=== PATIENT | female | born 1965 | race Caucasian/White ===

== ENCOUNTER → 2022-12-07 13:47 | Outpatient (CLI) | payer BC, SELFPAY ==
--- NOTE | 2022-12-07 13:50 | MM_ITS ---
PROCEDURE INFORMATION: Exam: MG Bilateral Screening 3D Mammography Exam date and time: 12/07/2022 1:42 PM Age: 56 years old Clinical indication: Screening examination TECHNIQUE: Imaging protocol: Bilateral Screening tomosynthesis and 2D mammography including computer-aided detection (CAD) when performed. COMPARISON: 1. MG DMSB DIG MAMM-SCREEN JOSUE W/CAD 09/25/2016 10:41 AM 2. MG DMDXUAVL DIG MAMM-DX UNI ADD VIEWS-LT 05/24/2012 3:22 PM FINDINGS: MAMMOGRAPHY: Breast composition: There are scattered areas of fibroglandular density. Mass: None. Architectural distortion: None. Calcifications: No suspicious calcifications. Asymmetric density: None. Skin thickening: None. Axillary adenopathy: None. IMPRESSION: No mammographic evidence of malignancy. Annual screening is recommended unless otherwise clinically indicated. ASSESSMENT: BI-RADS Category 1: Negative
--- NOTE | 2022-12-07 13:51 | US_ITS ---
FINAL REPORT TECHNIQUE: Limited sonographic images of the thyroid were obtained. CLINICAL HISTORY: GOITER FINDINGS: US THYROID/HEAD OR NECK SOFT TISSUE The right lobe of the thyroid measures 6.3 x 3.2 x 3.5 cm. There is a solid, hypoechoic nodule measuring 11 x 7 x 7 mm consistent with TI-RADS category 4. There is a cystic, solid, isoechoic nodule measuring 6 x 5 x 5 mm consistent with TI-RADS category 2. The left lobe of the thyroid measures 6.5 x 2.6 x 3.3 cm. There is a solid, isoechoic nodule measuring 16 x 9 x 15 mm consistent with TI-RADS category 3. There is a solid, isoechoic nodule measuring 23 x 24 x 11 mm consistent with TI-RADS category 3. The isthmus measures 5 mm. IMPRESSION: Multiple bilateral thyroid nodules as detailed above. Recommend follow-up in 6-12 months. Reviewed, Interpreted and Dictated by Zeyad Lopez III, MD Transcribed by Fifi Yeager Authenticated and [facility]
== END ==
PROVIDERS: PCP Family Medicine; Visit Provider Family Medicine
DX: Z12.31 Encounter for screening mammogram for malignant neoplasm of breast (principal)
CPT/HCPCS: 76536; 77063; 77067

== ENCOUNTER 2023-01-11 11:21 | Day surgery (SDC) | payer BC, SELFPAY ==
[2022-12-28 09:45] VITALS: BMI 30.4
[2023-01-11 11:33] VITALS: BP 149/82; PULSE 50; RESP 18; TEMP 36.4; O2SAT 100
--- NOTE | 2023-01-11 11:46 | EXP.ANES.CKL ---
[facility] Disclaimer: The information contained in this section may have been updated after the patient was seen, as this information can be updated by other users. Medical History Abscess Cataract Hx MRSA infection Hx of thyroid nodule Surgical History History of cholecystectomy Hx of blepharoplasty Hx of cataract surgery Hx of melanoma excision Family History Other Family history of diabetes mellitus type II Family history of myocardial infarction Social History Smoking Status: Current every day smoker tobacco type: cigarettes alcohol intake: never substance use type: denies use current occupational status: employed Travel in the last 8 weeks: None caffeine: No [facility] Anesthesia Checklist Patient Identification Patient Identification: Arm Band and Verbal (Name & ) Structural Data Admitted From: Home Planned Operative Procedure/s: Colonoscopy Consent for Planned Operative Procedure(s) Verified: Yes NPO Status Verified Time NPO: 00:00 Additional verifications Anesthesia Reactions: No Airway Assessment Mallampati Score:: Class III C-Spine Mobility Assessed: Yes TMJ Mobility Assessed: Yes Dentition: Good Dentition Neurological Assessment Level of Consciousness: Awake Hx Seizures: No Numbness or tingling in extremities: No Anesthesia Plan Anesthesia Risk discussed: Yes Anesthesia Plan: Verified ASA Class: III Anesthesia Type: MAC
[2023-01-11 11:49] LABS: POC Glucose,Bedside 132 (70-110)
[2023-01-11 12:25] VITALS: O2SAT 99
--- NOTE | 2023-01-11 12:40 | HMH.SCOPE ---
Procedure: Date: 01/11/23 Patient Date of :: 1965 Procedure Performed:: Screening colonoscopy Indications:: Colon screening, personal history of melenoma Performing Provider:: Roberta Garcia MD Referring Provider:: Hannah Garcia Sedation:: Propofol Procedure:: After placing the patient in the left lateral decubitus position, the colonoscopy was gently inserted into the rectum and under direct visualization advanced to the cecum which was identified by transillumination in the right lower quadrant, identification of the ileocecal valve, appendiceal orifice, and cecal strap. Color, texture, mucosa, and anatomy of the colon were carefully examined with the scope. Findings:: Anal canal: normal Rectum: normal Sigmoid colon: normal without polyps or inflammatory changes Descending colon: normal without polyps or inflammatory changes Splenic flexure: normal Transverse colon: normal without polyps or inflammatory changes Hepatic flexure: normal Ascending colon: normal without polyps or inflammatory changes Cecum: normal Terminal ileum: not visualized Impression: Normal colonoscopy Recommendations:: Follow up examination in about TEN years or so, sooner if clinically indicated. Complications:: None Estimated blood obtained (mL): 0 Colonoscopy Component Colonoscopy Component Was a colonoscopy performed during today's procedure?: Yes Recommended follow up colonoscopy of at least 10 years?: Yes
[2023-01-11 12:44] VITALS: BP 113/66; PULSE 73; RESP 18; TEMP 36.7; O2SAT 95
[2023-01-11 12:51] VITALS: BP 131/71; PULSE 73; RESP 18; O2SAT 97
[2023-01-11 13:01] VITALS: BP 132/70; PULSE 70; RESP 18; O2SAT 95
[2023-01-11 13:11] VITALS: BP 136/76; PULSE 70; RESP 18; O2SAT 96
== END 2023-01-11 13:11 | disposition home or self-care (01) ==
PROVIDERS: PCP Family Medicine; Visit Provider Internal Medicine Gastroenterology
PROC: (CPT 45378; principal; 2023-01-11 12:30)
DX: Z12.11 Encounter for screening for malignant neoplasm of colon (principal); Z85.820 Personal history of malignant melanoma of skin; E11.9 Type 2 diabetes mellitus without complications
CPT/HCPCS: 45378; 82962

== ENCOUNTER 2024-08-02 14:32 | Inpatient (IN) | payer BC, SELFPAY ==
[2024-08-02] VITALS (18 sets, daily range): BP systolic 97–165; BP diastolic 53–95; PULSE 81–96; RESP 12–19; TEMP 36.3–37.3; O2SAT 90–99; BMI 30.4; BMI 30.2
--- NOTE | 2024-08-02 14:44 | CT_ITS ---
PROCEDURE INFORMATION: Exam: CT Abdomen And Pelvis With Contrast Exam date and time: 08/02/2024 4:07 PM Age: 58 years old Clinical indication: Abdominal pain; Additional info: Abd pain TECHNIQUE: Imaging protocol: Computed tomography of the abdomen and pelvis with contrast. Radiation optimization: All CT scans at this facility use at least one of these dose optimization techniques: automated exposure control; mA and/or kV adjustment per patient size (includes targeted exams where dose is matched to clinical indication); or iterative reconstruction. Contrast material: ISOVUE; Contrast volume: 75 ml; Contrast route: IV; COMPARISON: No relevant prior studies available. FINDINGS: Lungs: Lung bases are clear. Liver: Fatty liver changes with associated hepatomegaly measuring 20 cm. Liver otherwise unremarkable. Gallbladder and biliary ducts: Status post cholecystectomy. No evident bile duct dilatation allowing for prior cholecystectomy. Pancreas: Normal. No ductal dilation. Spleen: Normal. No splenomegaly. Adrenal glands: Normal. No mass. Kidneys and ureters: Normal. No hydronephrosis. Stomach and bowel: Mildly fluid distended proximal to mid small bowel loops noted suggesting ileus. GI tract structures otherwise unremarkable with no evident wall thickening allowing for incomplete distention. Appendix: Dilated fluid-filled appendix measuring up to 16 mm with associated wall thickening and [id number] adjacent inflammatory changes compatible with acute appendicitis noted. Associated thickening of the tip of the cecum. Intraperitoneal space: Unremarkable. No free air. No significant fluid collection. Vasculature: Unremarkable. No abdominal aortic aneurysm. Lymph nodes: Unremarkable. No enlarged lymph nodes. Urinary bladder: Unremarkable as visualized. Reproductive: Unremarkable as visualized. Bones/joints: Unremarkable. No acute fracture. Soft tissues: No definite abscess or extraluminal air. IMPRESSION: Acute appendicitis with associated thickening of the cecal tip. Distended small bowel loops noted suggest ileus associated with the appendicitis.
--- OUTSIDE RECORDS SUMMARY | 2024-08-02 14:44 | XMS_ITS | Data Portability ---
Author Organization [facility] Address [address] [place] [address] Care Team Providers Care School Administrator Name Role Phone TODD PAREDES Referring Provider [phone] Assessment No assessment recorded. Plan of Treatment Reminders Order Date Submit Date Provider Last Modified By Organization Details Last Modified Time Details Appointments RECHECK 2024 01:00P M ROMY CLICK CONSUMER SAFETY INSPECTOR Not available Not available Not available Lab TSH, serum or plasma 2023 024 [facility], [address] [place] [address], [phone], 10/12/2023 14:49:59 T3, free, serum or plasma 2023 024 [facility], [address] [place] [address], [phone], 10/12/2023 14:50:03 T4, free, serum 2023 024 [facility], [address] [place] [address], [phone], 10/12/2023 14:50:01 Referral None recorded . Procedures None recorded . Surgeries None recorded . Imaging US, neck, soft tissue [email or web address] [facility], [address] [place] [address], [phone], 10/19/2023 08:05:58 Medication Orders None recorded . Patient TargetsNo targets recorded. Patient InstructionsNo instructions recorded. Reason for Referral None Reported. Results Created Date Observation Date Name Description Value Unit Range Abnormal Flag Note LastModifiedBy Organization Detail LastModifiedTime 10/12/19 24 10/12/2023 TSH TSH 0.577 u[IU] /mL 0.270- 4.200 normal Not Available [facility] [address] [place] [address], [phone], 10/12/2023 14:49:58 10/12/19 24 10/12/2023 T4,FR EE T4,free 1.03 NG/dL 0.93-1 .70 normal Not Available [facility] [address] [place] [address], [phone], 10/12/2023 14:50:00 10/12/19 24 10/12/2023 T3 FREE T3 free 3.29 pg/mL 2.00-4 .40 normal Not Available [facility] [address] [place] [address], [phone], 10/12/2023 14:50:03 10/22/19 24 10/19/2023 US, neck, soft tissu e [facility] [address] [place] [id number] Fernando draper Name: JENIFER draper : 965 Fernando draper 49 Orderi ng Provid er: GAEL RAMIREZ EXAM DATE: 2023 EXAM: US ECHO THYROI D OR [facility]OT[facility] D CLINIC AL INFORM ATION: Nodule TECHNI QUE: Multip le sonogr aphic images of the thyroi d gland were obtain ed. COMPAR UBALDO: None. FINDIN GS: Isthmu s measur es 0.7 cm in thickn ess. Right lobe measur es 6 x 3.6 x 2.4 cm. Left lobe measur es 6 x 3.9 x 2.9 cm. The gland is mildly enlarg ed in size and hetero geneou s in echote xture. Nodule s: 1. Comple x nodule involv ing the right lobe measur ing 6 x 5 x 9 mm 2. Comple x right nodule measur ing 8 x 8 x 9 mm 3. Left neck comple x and solid nodule measur ing 15 x 11 x 16 mm 4. Left nodule : Measur ement = 1.7 x 1.4 x 2.2 cm. The nodule is solid - 2; isoech oic - 1; wider than tall - 0; shows ill-de fined margin - 0; and no echoge dianna foci - 0. Total TI-RAD S POINTS = 3. ACR TI-RAD S Catego ry = TR3 - Mildly suspic ious. IMPRES DEEP: TR3 lesion s are consid ered mildly suspic ious. Becaus e this lesion is betwee n 1.5 and 2.5 cm in maximu m diamet er, ultras ound follow up is recomm ended in one year as per ACR recomm endati on. Interp reted By: Kemal Redmond MD Electr onical ly Signed By: Kemal Redmond MD on 024 8:03 AM [email or web address] [facility] [address] [place] [address], [phone], 10/22/2023 10:15:56 Result Notes None recorded. Procedures Surgical History None recorded. Imaging Results Imaging Date Name Status LastModified by Organiz ation Details LastModified Time 10/19/2023 US, neck, soft tissue completed [facility] [address] [place], [phone], 10/22/2023 10:15:56 Procedure Notes None recorded. Medical Equipment None Reported. Allergies No known drug allergies Medications Name Sig Start Date Stop Date Status Note LastModified by Organization Details LastModified Time losartan 50 mg tablet Take 1 tablet every day by oral route. active Not Available Not Available No t Available fluoxetine 40 mg capsule Take 1 capsule every day by oral route. active Not Available Not Available No t Available bisoprolol 2.5 mg-hydrochlo rothiazide 6.25 mg tablet Take 1 tablet every day by oral route. active Not Available Not Available No t Available Vitals Date Recorded Body height Body mass index (BMI) Body weight Heart rate Systolic blood pressure Diastolic blood pressure Provider Name and Address Organization Details Last Updated DateTime 4 172.72 cm 30.4 kg/m2 94171.4 7 g 74 /min 124 mm[Hg] 78 mm[Hg] Shantelle Marcelino [facility] 4 13:06:33 Social History None recorded. Functional Status None recorded. Mental Status None recorded. Family History Nothing Reported. Medical History No medical history recorded. Gynecological HistoryNo gynecological history recorded. Obstetrics History GPAL:G 0 P 0 0 0 0 Past Encounters Encounter ID Performer Location Encounter Start Date Encounter Closed Date Diagnosis/Indication Diagnosis SNOMED-CT Code Diagnosis ICD10 Code Diagnosis Note [id number] ROMY SOTOMAYOR CLICK, CONSUMER SAFETY INSPECTOR [facility] [address] [place] [address] 10/12/2023 12:32:44 10/12/2023 13:27:42 Multinodular goiter [id number] E04.2 will order US, still awaiting outside records and images.diomedes l check labs todayfurth er recommenda tions pending labs and imaging Health Concerns Section Related Observation LastModified by Organization Detai ls LastModified Time None Recorded Concern Status LastModified by Organization Details LastModified Time None Recorded Advance Directives Directive None Recorded Payers Insurance Date Sequence Insurance Name Policy Number Policy Patel Covered Member ID Patel Member ID Guarantor Name 10/18/2023 1 [employer]: TIKI [place] OF [place] (PP[place]) [id number] 1 Donita Nobles [id number] Donita Nobles Notes Date Note Type Note Provider Name and Address Organization Details Recorded Time 10/12/2023 text/html Mrs. Nobles is a 57 year old (race) female patient with a past medical history significant for melanoma left cheek, who is seen at the office today at the request Dr. Rigo RAMESH noted 1 year ago after having a palpable nodule scan was completed, patient was suppose to be seen by endo at that time but appointment did not get made. She has been referred for evaluation of MNG. Endorse fatigue, hoarseness, at times difficulty swallowing, thinning hair Sister had thyroidectomy not sure why ROMY RAMIREZ, CONSUMER SAFETY INSPECTOR [address] [place], [phone], [facility] 10/12/2023 14:09:51 OBGyn Episode No OBEpisode recorded.
--- OUTSIDE RECORDS SUMMARY | 2024-08-02 14:45 | XMS_ITS | Data Portability ---
Author Organization [facility] Address [address] [place] [address] Care Team Providers Care Woods Manager Name Role Phone DAX GRAVES Referring Provider [phone] [facility] Referring Provider Assessment Encounter Date Assessment Date Assessment LastModified by Organization Details LastModified Time 10/13/2019 10/13/2019 Cyndie has a significant otitis on the left both media and external. We will treat accordingly. If she cannot get the drops to go into the ear she may require an ENT for a wick placement. She has been attempting to have labs drawn but the shift coordinator has been having difficulty obtaining her blood. nola Not available 10/13/2019 11:00:22 10/20/2019 10/20/2019 Donita remains miserable with the left external otitis and the pain is getting unbearable. The ear canal is more swollen and occluded now despite augmentin and drops. We will recommend an ENT referral. nola Not available 10/20/2019 10:42:03 06/21/2020 06/21/2020 Donita presents for a wellness check up. She has poorly controlled hypertension and continues to smoke cigarettes. She has severe hyperlipidemia and declined to take statins that were previously prescribed. We highly encourage her to reconsider the statins. She was referred to cardiology several years ago in 2018. She reportedly had a stress echo but we did not receive the report. It is presumed to have been unremarkable. However she continues to have significant cardiac risk factors. Of significance, an older sister at age 54 of an acute UT. At this point we recommend adding lisinopril rather than increasing the beta jenn. We will reorder a statin. She is overdue mammogram and pap smear. 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 She has never had colon cancer screening and we at least encourage a cologuard. We encourage her to stop smoking immediately. She has had the first covid vaccine and we will recommend tetanus and shingles updates at follow up. Not available 06/22/2020 07:29:04 10/23/2022 10/23/2022 Donita presents for a wellness check up. She has had an eventful year having been diagnosed with a melanoma and required wide excision over the left upper back and left axilla. She subsequently had a MRSA infection. She has fairly controlled hypertension and continues to smoke cigarettes. She has severe hyperlipidemia and declined to take statins that were previously prescribed. She could not tolerate the statin. She was referred to cardiology several years ago in 2018. She reportedly had a stress echo but we did not receive the report. It is presumed to have been unremarkable. However she continues to have significant cardiac risk factors. Of significance, an older sister at age 54 of an acute UT. Last year we added Lisinopril to the Bisoprolol/hct and it appears she filled it once a couple of years ago. At this point she thought she was taking Lisinopril daily but it appears she has been getting the bisoprolol/hctz filled. She is overdue mammogram and pap smear. 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 She has never had colon cancer screening and we recommend a colonoscopy with her history of melanoma. We encourage her to stop smoking immediately. A calculated ten year CV risk is 17.54%. She has had the first covid vaccine and we will recommend tetanus and shingles updates at follow up. Not available 10/24/2022 23:34:55 12/01/2022 12/01/2022 Donita has been through a lot the past year or so with the diagnosis of melanoma. Previously she was not one to frequent the doctor or worry with her help. At her recent dermatology visit they were concerned about possible thyroid enlargement and there may be but her neck is also very obese. Thyroid blood test screenings have always been normal. Blood pressure is not at goal with a beta jenn so we will add Losartan. Not available 12/03/2022 22:07:19 Plan of Treatment Reminders Order Date Submit Date Provider Last Modified By Organization Details Last Modified Time Details Appointments [facility] 2024 09:00A M Hannah Garcia MD Not available Not available Not available Lab noninvasi ve colorecta l cancer DNA + occult blood screening , QL, stool 2020 021 [email or web address] 5 Not available 07/19/2020 11:14:35 Referral ENT referral 2019 020 ANNETTE Fernandes, [address], [address], [place], [address], 10/20/2019 16:11:51 Procedures colonosco py screening (PROC) 2022 023 [email or web address] 5 Not available 11/14/2022 08:26:34 Surgeries None recorded. Imaging US, thyroid [address] (Scheduling), [address], [place], [address], 01/12/2023 15:24:25 MAMMO, screening , digital, bilateral - 3D? [address] (Scheduling), [address], [place], [address], 01/12/2023 15:24:34 MAMMO, screening , digital, bilateral - 3D? [address] (Scheduling), [address], [place], [address], 07/19/2020 11:14:13 Medication Orders losartan 50 mg tablet 2022 023 [facility], [address] [facility], [place], [address], 12/01/2022 11:13:12 metformin ER 500 mg tablet,ex tended release 24 hr [address], [address] [place] [address], [address], 10/24/2022 22:16:00 lisinopri l 10 mg tablet [address], [address] [place] [address], [address], 04/14/2023 17:42:40 rosuvasta tin 20 mg tablet [address], [address] [place] [address], [address], 10/23/2022 10:27:41 ibuprofen 800 mg tablet 2019 020 [place] [address], [address] [place] [address], [address], 06/21/2020 09:56:03 amoxicill in 875 mg-potass ium clavulana te 125 mg tablet 2019 [address] [place] [address], [address] [place] [address], [address], 06/21/2020 09:37:19 neomycin- polymyxin -hydrocor t 3.5 mg-10,000 unit/mL-1 % ear drops,roberto p [address], [address] [place] [address], [address], 06/21/2020 09:56:15 dexametha sone sodium phosphate 4 mg/mL injection solution 2019 020 [place] [address], [address] [place] [address], [address], 10/20/2019 09:28:49 Patient TargetsNo targets recorded. Patient Instructions Encounter Date Encounter Id Patient Instructions Last Modified By Organization Details Last Modified Time 06/21/2020 [id number] Quitting Tobacco : Care Instructions [place] [id number] Not available 06/22/2020 07:29:06 10/23/2022 [id number] Quitting Tobacco : Care Instructions Not available 10/23/2022 10:53:48 recombinant zoster (shingles) vaccine: what you need to know Not available 10/23/2022 10:53:48 Tdap (tetanus, diphtheria, pertussis) vaccine: what you need to know Not available 10/23/2022 10:57:26 Reason for Referral ENT Referral for Otitis exte rna Ext otitis refractory Referring Physician: Hannah Garcia, Family Medicine, Encounter Date: 10/20/2019 Results Created Date Observation Date Name Description Value Unit Range Abnormal Flag Note LastModifiedBy Organization Detail LastModifiedTime 06/11/19 21 06/10/2020 CBC w/ auto diff WBC 10.1 10 4.5-11 .5 Not Available [facility] (Lab Registration) [address] [place], [address], 06/10/2020 05:51:25 06/11/19 21 06/10/2020 CBC w/ auto diff RBC 4.90 10 4.25-5 .57 Not Available [facility] (Lab Registration) [address] [place], [address], 06/10/2020 05:51:25 06/11/19 21 06/10/2020 CBC w/ auto diff HGB 15.4 g/dL 12.0-1 5.7 Not Available [facility] (Lab Registration) [address] [place], [address], 06/10/2020 05:51:25 06/11/19 21 06/10/2020 CBC w/ auto diff HCT 45.9 % 36.0-4 7.0 Not Available [facility] (Lab Registration) [address] [place], [address], 06/10/2020 05:51:25 06/11/19 21 06/10/2020 CBC w/ auto diff MCV 93.7 fL 80-95 Not Available [facility] (Lab Registration) [address] [place], [address], 06/10/2020 05:51:25 06/11/19 21 06/10/2020 CBC w/ auto diff MCH 31.4 pg 27.0-3 4.0 Not Available [facility] (Lab Registration) [address], [place], [address], 06/10/2020 05:51:25 06/11/19 21 06/10/2020 CBC w/ auto diff MCHC 33.6 g/dL 32.0-3 6.0 Not Available [facility] (Lab Registration) [address] [place], [address], 06/10/2020 05:51:25 06/11/19 21 06/10/2020 CBC w/ auto diff platelet count 213 10 150-45 0 Not Available [facility] (Lab Registration) [address], [place], [address], 06/10/2020 05:51:25 06/11/19 21 06/10/2020 CBC w/ auto diff RDW 13.0 % 12.3-1 5.1 Not Available [facility] (Lab Registration) [address] [place], [address], 06/10/2020 05:51:25 06/11/19 21 06/10/2020 CBC w/ auto diff MPV 11.9 fL 7.4-10 .4 high Not Available [facility] (Lab Registration) [address] [place], [address], 06/10/2020 05:51:25 06/11/19 21 06/10/2020 CBC w/ auto diff granulocyte% 54.9 % 40-75 Not Available [facility] (Lab Registration) [address] [place], [address], 06/10/2020 05:51:25 06/11/19 21 06/10/2020 CBC w/ auto diff lymphocyte% 37.1 % 15-57 Not Available [facility] (Lab Registration) [address], [place], [address], 06/10/2020 05:51:25 06/11/19 21 06/10/2020 CBC w/ auto diff monocyte% 6.5 % 4.0-12 .0 Not Available [facility] (Lab Registration) [address] [place], [address], 06/10/2020 05:51:25 06/11/19 21 06/10/2020 CBC w/ auto diff eosinophil% 0.4 % 0.0-4. 0 Not Available [facility] (Lab Registration) [address], [place], [address], 06/10/2020 05:51:25 06/11/19 21 06/10/2020 CBC w/ auto diff basophil% 0.4 % 0.0-1. 0 Not Available [facility] (Lab Registration) [address] [place], [address], 06/10/2020 05:51:25 06/11/19 21 06/10/2020 CBC w/ auto diff immature granulocytes % 0.7 % 0.0-0. 8 Not Available [facility] (Lab Registration) [address] [place], [address], 06/10/2020 05:51:25 06/11/19 21 06/10/2020 CBC w/ auto diff granulocyte# 5.54 10 Not Available [facility] (Lab Registration) [address] [place], [address], 06/10/2020 05:51:25 06/11/19 21 06/10/2020 CBC w/ auto diff lymphocyte# 3.75 10 Not Available [facility] (Lab Registration) [address] [place], [address], 06/10/2020 05:51:25 06/11/19 21 06/10/2020 CBC w/ auto diff monocyte# 0.66 10 Not Available [facility] (Lab Registration) [address] [place], [address], 06/10/2020 05:51:25 06/11/19 21 06/10/2020 CBC w/ auto diff eosinophil# 0.04 10 Not Available [facility] (Lab Registration) [address] [place], [address], 06/10/2020 05:51:25 06/11/19 21 06/10/2020 CBC w/ auto diff basophil# 0.04 10 Not Available [facility] (Lab Registration) [address] [place], [address], 06/10/2020 05:51:25 06/11/19 21 06/10/2020 CBC w/ auto diff immature granulocytes # 0.07 10 Not Available [facility] (Lab Registration) [address] [place], [address], 06/10/2020 05:51:25 06/11/19 21 06/10/2020 CBC w/ auto diff manual differential NO Not Available [facility] (Lab Registration) [address] [place], [address], 06/10/2020 05:51:25 06/11/19 21 06/10/2020 CBC w/ auto diff note Unles s other melton noted testi ng [facility] [address] [place] [address] [phone] Alexandr whitney MD CLIA: [id number] Not Available [facility] (Lab Registration) [address] [place], [address], 06/10/2020 05:51:25 06/11/19 21 06/10/2020 TSH, serum or plasm a thyroid stimulating hormone 0.72 mIU/m L 0.34-4 .80 Not Available [facility] (Lab Registration) [address] [place], [address], 06/10/2020 06:13:56 06/11/19 21 06/10/2020 TSH, serum or plasm a note Unles s other melton noted testi ng perfo rmed at: [facility] [address] [place] [address] [phone] Alexandr whitney MD CLIA: [id number] Not Available [facility] (Lab Registration) [address] [place], [address], 06/10/2020 06:13:56 06/11/19 21 06/10/2020 CMP, serum or plasm a sodium 138 mmol/ L 136-14 5 Not Available [facility] (Lab Registration) [address] [place], [address], 06/10/2020 06:13:58 06/11/19 21 06/10/2020 CMP, serum or plasm a potassium 3.7 mmol/ L 3.5-5. 1 Not Available [facility] (Lab Registration) [address] [place], [address], 06/10/2020 06:13:58 06/11/19 21 06/10/2020 CMP, serum or plasm a chloride 103 mmol/ L 98-107 Not Available [facility] (Lab Registration) [address] [place], [address], 06/10/2020 06:13:58 06/11/19 21 06/10/2020 CMP, serum or plasm a carbon dioxide 25 mmol/ L 21-32 Not Available [facility] (Lab Registration) [address] [place], [address], 06/10/2020 06:13:58 06/11/19 21 06/10/2020 CMP, serum or plasm a anion gap 10.0 Not Available [facility] (Lab Registration) [address] [place], [address], 06/10/2020 06:13:58 06/11/19 21 06/10/2020 CMP, serum or plasm a glucose 132 mg/dL 70-110 high Not Available [facility] (Lab Registration) [address] [place], [address], 06/10/2020 06:13:58 06/11/19 21 06/10/2020 CMP, serum or plasm a blood urea nitrogen 11 mg/dL 7-18 Not Available [facility] (Lab Registration) [address] [place], [address], 06/10/2020 06:13:58 06/11/19 21 06/10/2020 CMP, serum or plasm a creatinine 0.9 mg/dL 0.6-1. 0 Not Available [facility] (Lab Registration) [address] [place], [address], 06/10/2020 06:13:58 06/11/19 21 06/10/2020 CMP, serum or plasm a BUN/creatini ne ratio 12.2 ratio 9-21 Not Available [facility] (Lab Registration) [address] [place], [address], 06/10/2020 06:13:58 06/11/1906/10/2020 CMP, serum or plasm a estimated glom filtration rate 69 mL/mi n >60- Not Available [facility] (Lab Registration) [address] [place], [address], 06/10/2020 06:13:58 06/11/19 21 06/10/2020 CMP, serum or plasm a total protein 7.9 g/dL 6.4-8. 2 Not Available [facility] (Lab Registration) [address] [place], [address], 06/10/2020 06:13:58 06/11/19 21 06/10/2020 CMP, serum or plasm a albumin 3.9 g/dL 3.4-5. 0 Not Available [facility] (Lab Registration) [address] [place], [address], 06/10/2020 06:13:58 06/11/19 21 06/10/2020 CMP, serum or plasm a calcium 9.6 mg/dL 8.5-10 .1 Not Available [facility] (Lab Registration) [address] [place], [address], 06/10/2020 06:13:58 06/11/19 21 06/10/2020 CMP, serum or plasm a corrected calcium 9.7 mg/dL 8.5-10 .1 Not Available [facility] (Lab Registration) [address] [place], [address], 06/10/2020 06:13:58 06/11/19 21 06/10/2020 CMP, serum or plasm a bilirubin total 0.3 mg/dL 0.4-1. 5 low Not Available [facility] (Lab Registration) [address] [place], [address], 06/10/2020 06:13:58 06/11/19 21 06/10/2020 CMP, serum or plasm a AST (SGOT) 37 U/L 15-37 Not Available [facility] (Lab Registration) [address] [place], [address], 06/10/2020 06:13:58 06/11/19 21 06/10/2020 CMP, serum or plasm a ALT (SGPT) 52 U/L 12-78 Not Available [facility] (Lab Registration) [address] [place], [address], 06/10/2020 06:13:58 06/11/19 21 06/10/2020 CMP, serum or plasm a alk phosphatase 108 U/L 50-120 Not Available [facility] (Lab Registration) [address] [place], [address], 06/10/2020 06:13:58 06/11/19 21 06/10/2020 CMP, serum or plasm a note Unles s other melton noted testi ng perfo rmed at: [facility] on [facility] [address] [place] [address] [phone] Alexandr whitney MD CLIA: [id number] Not Available [facility] (Lab Registration) [address] [place], [address], 06/10/2020 06:13:58 06/11/19 21 06/10/2020 lipid panel , serum triglyceride 646 mg/dL 20-200 high The Natio nal [employer] stero l Educa tion Progr am (NCEP ) has set the follo wing guide lines for Fasti ng Trigl yceri ruthie: FAVIAN L: <150 mg/dL BORDE RLINE HIGH: 150 - 199 mg/dL HIGH: 200 - 499 mg/dL VERY HIGH: > or =500 mg/dL Not Available [facility] (Lab Registration) [address] [place], [address], 06/10/2020 06:14:58 06/11/19 21 06/10/2020 lipid panel , serum cholesterol 313 mg/dL 0-200 high The Natio nal [employer] Educa tion Progr am (NCEP ) has set the follo wing guide lines for Fasti ng Bethany stero l: RADHA ABLE: <200 mg/dL BORDE RLINE HIGH: 200 - 239 mg/dL HIGH: > or =240 mg/dL Not Available [facility] (Lab Registration) [address] [place], [address], 06/10/2020 06:14:58 06/11/19 21 06/10/2020 lipid panel , serum HDL cholesterol 28 mg/dL 60- low The Natio nal [employer] Educa tion Progr am (NCEP ) has set the follo wing guide lines for Fasti ng HDL Bethany stero l: LOW HDL: <40 mg/dL FAVIAN L: 40 - 60 mg/dL RADHA ABLE: >60 mg/dL Not Available [facility] (Lab Registration) [address] [place], [address], 06/10/2020 06:14:58 06/11/19 21 06/10/2020 lipid panel , serum LDL calculated TNP mg/dL 100- LDL is calcu ated and inval id when TRIG are >400 mg/dL . The Natio nal [employer]ero l Educa tion Progr am (NCEP ) has set the follo wing guide lines for Fasti ng LDL Bethany stero l: OPTIM AL: < 100 mg/dL LOW RISK: 100 - 129 mg/dL BORDE RLINE HIGH: 130 - 159 mg/dL HIGH: 160 - 189 mg/dL VERY HIGH: > or = 190 mg/dL Not Available [facility] (Lab Registration) [address] , [place], [address], 06/10/2020 06:14:58 06/11/19 21 06/10/2020 lipid panel , serum chol/HDL ratio 11 ratio -5 high Not Available [facility] (Lab Registration) [address] [place], [address], 06/10/2020 06:14:58 06/11/19 21 06/10/2020 lipid panel , serum note Unles s other melton noted testi ng perfo rmed at: [facility] [address] [place] [address] [phone] Alexandr whitney MD CLIA: [id number] Not Available [facility] (Lab Registration) [address] [place], [address], 06/10/2020 06:14:58 06/11/19 21 06/10/2020 HbA1c (hemo globi n A1c), blood glycosylated hemoglobin A1C 5.6 % 4.5-6. 2 Not Available [facility] (Lab Registration) [address] [place], [address], 06/10/2020 06:44:47 06/11/19 21 06/10/2020 HbA1c (hemo globi n A1c), blood note Unles s other melton noted testi ng perfo rmed at: [facility] [address] [place] [address] [phone] Alexandr whitney MD CLIA: [id number] Not Available [facility] (Lab Registration) [address] , [place], [address], 06/10/2020 06:44:47 10/18/1910/19/2022 LIPID PANEL , STAND CHIN cholesterol, total 265 mg/dL <200 high Not Available [facility] [address], [place], [address], 10/19/2022 03:04:06 10/18/1910/19/2022 LIPID PANEL , STAND CHIN HDL cholesterol 30 mg/dL > or = 50 low Not Available [facility] [address] [facility] [facility], [place], [address], 10/19/2022 03:04:06 10/18/1910/19/2022 LIPID PANEL , STAND CHIN triglyceride s 521 mg/dL <150 high If a non-f astin g speci men was colle cted, consi ermelinda repea t trigl yceri de testi ng on a fasti ng speci men if clini león indic ated. Noah maradiaga et al. J. of Clin. Lipid ol. 2015; 9:129 -169. There is incre ased risk of pancr eatit is when the trigl yceri de wilton ntrat ion is very high (> or = 500 mg/dL , espec ially if > or = 1000 mg/dL ). Noah maradiaga et al. J. of Clin. Lipid ol. 2015; 9:129 -169. Not Available [facility] [address] [facility] [facility], [place], [address], 10/19/2022 03:04:06 10/18/1910/19/2022 LIPID PANEL , STAND CHIN LDL-choleste rol mg/dL _(alfredo c) LDL bethany stero l not calcu lated . Trigl yceri de level s great er than 400 mg/dL inval idate calcu lated LDL resul ts. Refer ence range : <100 Radha able range <100 mg/dL for prima ry preve ntion ; <70 mg/dL for patie nts with CHD or diabe tic patie nts with > or = 2 CHD risk facto rs. LDL-C is now calcu lated using the Dyan n-Hop kins calcu latio n, which is a valid ated novel metho d provi ding cely r accur acy than the Fried venkat equat ion in the estim ation of LDL-C . Dyan schilling SS et al. BONY. 2013; 310(1 9): 2061- 2068 (http ://ed ucati on.Qu Aquaporin. com/f aq/FA Q164) Not Available [facility] [address], [place], [address], 10/19/2022 03:04:06 10/18/19 23 10/19/2022 LIPID PANEL , STAND CHIN chol/HDLC ratio 8.8 (calc ) <5.0 high Not Available [facility] [address], [place], [address], 10/19/2022 03:04:06 10/18/19 23 10/19/2022 LIPID PANEL , STAND CHIN non HDL cholesterol 235 mg/dL _(alfredo c) <130 high Non-H DL level > or = 220 is very high and may indic ate jeniffer ic famil ial hyper bethany stero lemia (FH). Clini alfredo asses sment and measu remen t of blood lipid level s shoul d be consi dered for all first -degr ee relat mikayla of patie nts with an FH diagn osis. For patie nts with diabe mariya plus 1 major ASCVD risk facto r, treat ing to a non-H DL-C goal of <100 mg/dL (LDL- C of <70 mg/dL ) is consi dered a thera peuti c optio n. Not Available [facility] [address], [place], [address], 10/19/2022 03:04:06 10/18/19 23 10/19/2022 COMPR EHENS MARIA METAB OLIC PANEL glucose 103 mg/dL 65-99 high Fasti ng refer ence inter ede For someo ne witho ut known diabe mariya, a gluco se value betwe en 100 and 125 mg/dL is consi stent with predi abete s and shoul d be confi rmed with a follo w-up test. Not Available [facility] [address] [place], [address], 10/19/2022 03:04:07 10/18/19 23 10/19/2022 COMPR EHENS MARIA METAB OLIC PANEL urea nitrogen (BUN) 12 mg/dL 7-25 normal Not Available [facility] [address] [place], [address], 10/19/2022 03:04:07 10/18/19 23 10/19/2022 COMPR EHENS MARIA METAB OLIC PANEL creatinine 0.67 mg/dL 0.50-1 .03 normal Not Available [facility] [address] [place], [address], 10/19/2022 03:04:07 10/18/19 23 10/19/2022 COMPR EHENS MARIA METAB OLIC PANEL eGFR 102 mL/mi n/1.7 3m2 > or = 60 normal The eGFR is based on the CKD-E PI 2020 equat ion. To calcu late the new eGFR from a previ ous Creat inine or Cysta tin C resul t, go to https ://adrian welch.amy griffiths/peace delcid s/ kdoqi /gfr% 5Fcal culat or Not Available [facility] [address] [facility] [place], [address], 10/19/2022 03:04:07 10/18/19 23 10/19/2022 COMPR EHENS MARIA METAB OLIC PANEL BUN/creatini ne ratio NOT APPLIC ABLE (calc ) 6-22 Not Available [facility] [address] [facility] [place], [address], 10/19/2022 03:04:07 10/18/19 23 10/19/2022 COMPR EHENS MARIA METAB OLIC PANEL sodium 136 mmol/ L 135-14 6 normal Not Available [facility] [address] [facility] [place], [address], 10/19/2022 03:04:07 10/18/19 23 10/19/2022 COMPR EHENS MARIA METAB OLIC PANEL potassium 4.3 mmol/ L 3.5-5. 3 normal Not Available [facility] [address] [facility] [place], [address], 10/19/2022 03:04:07 10/18/19 23 10/19/2022 COMPR EHENS MARIA METAB OLIC PANEL chloride 103 mmol/ L 98-110 normal Not Available [facility] [address] [facility] [place], [address], 10/19/2022 03:04:07 10/18/19 23 10/19/2022 COMPR EHENS MARIA METAB OLIC PANEL carbon dioxide 23 mmol/ L 20-32 normal Not Available [facility] [address] [place], [address], 10/19/2022 03:04:07 10/18/19 23 10/19/2022 COMPR EHENS MARIA METAB OLIC PANEL calcium 9.6 mg/dL 8.6-10 .4 normal Not Available [facility] [facility] [address] [place], [address], 10/19/2022 03:04:07 10/18/19 23 10/19/2022 COMPR EHENS MARIA METAB OLIC PANEL protein, total 7.3 g/dL 6.1-8. 1 normal Not Available [facility] [address] [place], [address], 10/19/2022 03:04:07 10/18/19 23 10/19/2022 COMPR EHENS MARIA METAB OLIC PANEL albumin 4.5 g/dL 3.6-5. 1 normal Not Available [facility] [address] [place], [address], 10/19/2022 03:04:07 10/18/19 23 10/19/2022 COMPR EHENS MARIA METAB OLIC PANEL globulin 2.8 g/dL_ (calc ) 1.9-3. 7 normal Not Available [facility] [address] [facility], [address], 10/19/2022 03:04:07 10/18/19 23 10/19/2022 COMPR EHENS MARIA METAB OLIC PANEL albumin/glob ulin ratio 1.6 (calc ) 1.0-2. 5 normal Not Available [facility] [address] [place], [address], 10/19/2022 03:04:07 10/18/19 23 10/19/2022 COMPR EHENS MARIA METAB OLIC PANEL bilirubin, total 0.4 mg/dL 0.2-1. 2 normal Not Available [facility] [address] [place], [address], 10/19/2022 03:04:07 10/18/19 23 10/19/2022 COMPR EHENS MARIA METAB OLIC PANEL alkaline phosphatase 91 U/L 37-153 normal Not Available [facility] [address] [place], [address], 10/19/2022 03:04:07 10/18/19 23 10/19/2022 COMPR EHENS MARIA METAB OLIC PANEL AST 32 U/L 10-35 normal Not Available [facility] [address], [place], [address], 10/19/2022 03:04:07 10/18/19 23 10/19/2022 COMPR EHENS MARIA METAB OLIC PANEL ALT 32 U/L 6-29 high Not Available [facility] [place] [facility] [address] [place], [address], 10/19/2022 03:04:07 10/18/19 23 10/19/2022 HEMOG LOBIN A1C hemoglobin A1C 5.8 %_of_ total _HGB <5.7 high For someo ne witho ut known diabe mariya, a hemog lobin A1c value betwe en 5.7% and 6.4% is consi stent with predi abete s and shoul d be confi rmed with a follo w-up test. For someo ne with known diabe mariya, a value <7% indic ates that their diabe mariya is well contr olled . A1c targe ts shoul d be indiv idual ized based on durat ion of diabe mariya, age, comor bid condi tions , and other consi derat ions. This assay resul t is consi stent with an incre ased risk of diabe mariya. Curre ntly, no conse nsus exist s regar ding use of hemog lobin A1c for diagn osis of diabe mariya for child kirt. Not Available [facility] [place] [facility] [address] [place], [address], 10/19/2022 03:04:08 10/18/1910/19/2022 TSH TSH 0.44 mIU/L 0.40-4 .50 normal Not Available [facility] [place] [facility] [address] [facility] [place], [address], 10/19/2022 03:04:09 10/18/19 23 10/19/2022 CBC (INCL UDES DIFF/ PLT) white blood cell count 9.6 thous and/u L 3.8-10 .8 normal Not Available [facility] [place] [facility] [address] [place], [address], 10/19/2022 03:04:09 10/18/19 23 10/19/2022 CBC (INCL UDES DIFF/ PLT) red blood cell count 4.64 soheila on/uL 3.80-5 .10 normal Not Available [facility] [address] [place], [address], 10/19/2022 03:04:09 10/18/1910/19/2022 CBC (INCL UDES DIFF/ PLT) hemoglobin 15.0 g/dL 11.7-1 5.5 normal Not Available [facility] [address] [place], [address], 10/19/2022 03:04:09 10/18/1910/19/2022 CBC (INCL UDES DIFF/ PLT) hematocrit 44.7 % 35.0-4 5.0 normal Not Available [facility] [address] [facility] [place], [address], 10/19/2022 03:04:10/18/1910/19/2022 CBC (INCL UDES DIFF/ PLT) MCV 96.3 fL 80.0-1 00.0 normal Not Available [facility] [address] [place], [place] [address], [address], 10/19/2022 03:04:09 10/18/1910/19/2022 CBC (INCL UDES DIFF/ PLT) MCH 32.3 pg 27.0-3 3.0 normal Not Available [facility] [facility] [place], [address], 10/19/2022 03:04:09 10/18/19 23 10/19/2022 CBC (INCL UDES DIFF/ PLT) MCHC 33.6 g/dL 32.0-3 6.0 normal Not Available [facility] [address] [place], [address], 10/19/2022 03:04:09 10/18/1910/19/2022 CBC (INCL UDES DIFF/ PLT) RDW 12.7 % 11.0-1 5.0 normal Not Available [facility] [place] [facility] [address] [place], [address], 10/19/2022 03:04:09 10/18/1910/19/2022 CBC (INCL UDES DIFF/ PLT) platelet count 192 thous and/u L 140-40 0 normal Not Available [facility] [place] [facility] [address], [place], [address], 10/19/2022 03:04:09 10/18/1910/19/2022 CBC (INCL UDES DIFF/ PLT) MPV 11.8 fL 7.5-12 .5 normal Not Available [facility] [place] [facility] [address], [place], [address], 10/19/2022 03:04:09 10/18/1910/19/2022 CBC (INCL UDES DIFF/ PLT) absolute neutrophils 5760 cells /uL 1500-7 800 normal Not Available [facility] [place] [facility] [address], [place], [address], 10/19/2022 03:04:09 10/18/1910/19/2022 CBC (INCL UDES DIFF/ PLT) absolute lymphocytes 3062 cells /uL 850-39 00 normal Not Available [facility] [place] [facility] [address], [place], [address], 10/19/2022 03:04:09 10/18/1910/19/2022 CBC (INCL UDES DIFF/ PLT) absolute monocytes 701 cells /uL 200-95 0 normal Not Available [facility] [place] [facility] [address], [place], [address], 10/19/2022 03:04:09 10/18/19 23 10/19/2022 CBC (INCL UDES DIFF/ PLT) absolute eosinophils 19 cells /uL 15-500 normal Not Available [facility] [place] [facility] [address], [place], [address], 10/19/2022 03:04:09 10/18/19 23 10/19/2022 CBC (INCL UDES DIFF/ PLT) absolute basophils 58 cells /uL 0-200 normal Not Available [facility] [place] [facility] [address], [place], [address], 10/19/2022 03:04:09 10/18/19 23 10/19/2022 CBC (INCL UDES DIFF/ PLT) neutrophils 60 % normal Not Available [facility] [place] [facility] [address], [place], [address], 10/19/2022 03:04:09 10/18/19 23 10/19/2022 CBC (INCL UDES DIFF/ PLT) lymphocytes 31.9 % normal Not Available [facility] [place] [facility] [address], [place], [address], 10/19/2022 03:04:09 10/18/19 23 10/19/2022 CBC (INCL UDES DIFF/ PLT) monocytes 7.3 % normal Not Available [facility] [place] [facility] [address], [place], [address], 10/19/2022 03:04:09 10/18/19 23 10/19/2022 CBC (INCL UDES DIFF/ PLT) eosinophils 0.2 % normal Not Available [facility] [place] [facility] [address], [place], [address], 10/19/2022 03:04:09 10/18/19 23 10/19/2022 CBC (INCL UDES DIFF/ PLT) basophils 0.6 % normal Not Available [facility] [place] [facility] [address] [place], [address], 10/19/2022 03:04:09 10/18/19 23 10/19/2022 HEPAT ITIS C AB W/REF L TO HCV RNA, QN, PCR hepatitis C antibody NON-RE ACTIVE non-re active normal HCV antib nichol was non-r eacti ve. There is no labor atory evide nce of HCV infec tion. In most cases , no furth er actio n is requi red. Howev er, if recen t HCV expos ure is suspe cted, a test for HCV RNA (test code 93390 ) is sugge sted. For addit ional infor yael alvarez e refer to http: //[facility] kari melgar stdia gnost ics.c om/fa q/FAQ 22v1 (This link is being provi ded for infor matrishabh nal/ educa shady l purpo ses only. ) Not Available [facility] [place] [facility] [address] [facility], [address], 10/19/2022 03:04:10 12/08/19 23 12/07/2022 US, thyro id No observ ation record ed. [id number] [facility] [address], [place], [address], 12/12/2022 16:26:03 12/09/19 23 12/07/2022 MAMMO , scree carmen, digit al, bilat eral No observ ation record ed. [address], [place], [address], 12/08/2022 15:06:12 Result Notes None recorded. Problems Name Problem SNOMED Code Status Onset Date Resolution Date Notes Provider Name and Address Organization Details Recorded Time Headache 00933384 Active Hannah Garcia MD [address] [facility], [address], [place], [address], [facility] 6 11:33:32 Acute sinusitis [id number] Darius Garcia MD [address] [address], [place] - [facility] 6 11:33:32 Bronchopneumon ia [id number] Darius Garcia MD [address] [address], [place] - [facility] 6 11:33:32 Wheezing [id number] Darius Garcia MD [address] [address], [place] - [facility] 6 11:33:32 Benign essential hypertension 1201114 Darius Garcia MD [address] [address], [place] - [facility] 6 11:33:32 Heart murmur 10344366 Darius Garcia MD [address] [address], [place] - [facility] 6 11:33:32 Hyperlipidemia 49921770 Darius Garcia MD [address] [address], [place] - [facility] 6 11:33:32 Depressive disorder [id number] Darius Garcia MD [address] [address], [place] - [facility] 6 11:33:32 Acute bronchitis 47298182 Darius Garcia MD [address] [address], [place] - [facility] 6 11:33:32 Tobacco dependence syndrome [id number] Darius Garcia MD [address] [address], [facility] 6 11:33:32 Carpal tunnel syndrome 99956075 Active Hannah Garcia MD [address], [address] [place] [address], [facility] 6 12:00:43 Neck pain 40949997 Active Hannah Garcia MD [address], [address] [place] [address], [facility] 6 12:00:43 Problem Notes None recorded. Procedures Surgical History Date Name Laterality Status Provider Name and Address Organization Details Recorded Time 05/25/19 21 Cataract Surgery completed Hannah Garcia MD [address], [address] [place] [address], [facility] 06/21/2020 10:11:32 05/25/19 19 blepharoplasty of upper eyelid completed Hannah Garcia MD [address], [address] [place] [address], [facility] 06/21/2020 10:12:12 09/17/19 13 Nebulizer tx completed Hannah Garcia MD [address] [address], [place], [place], [address] [place] [address], [facility] 09/16/2012 16:22:26 03/26/18 97 Cholecystectomy completed [facility] 06/02/2011 17:03:49 Imaging Results Imaging Date Name Status LastModified by Organiz ation Details LastModified Time 12/07/2022 US, thyroid completed nola [address], [place], [address], 12/12/2022 16:26:03 12/07/2022 MAMMO, screening, digital, bilateral completed nola [facility] [address], [place], [address], 12/08/2022 15:06:12 Procedure Notes None recorded. Medical Equipment None Reported. Allergies Allergen ID Allergen Name Allergen Category Reaction Reaction Severity Criticality Documentation Date Start Date Code Code System Note Provider Name and Address Organization Details Recorded Time 60744 lisinopri l medicatio n Not available Not available Not available 12/01/2022 24941 RxNorm cough Hannah Garcia MD [address] [facility], [address], [place], [address] , [facility] 11:15:14 Medications Name Sig Start Date Stop Date Status Note LastModified by Organization Details LastModified Time losartan 50 mg tablet TAKE 1 TABLET BY MOUTH ONCE DAILY . APPOINTM ENT REQUIRED FOR FUTURE REFILLS 2024 active Not Available Not Available Not Avai lable fluoxetin e 40 mg capsule Take 1 capsule by mouth once daily 2024 active Not Available Not Available Not Avai lable amoxicill in 500 mg capsule Take 1 capsule 3 times a day by oral route. 2014 active Not Available Not Available Not Avai lable azithromy johnie 250 mg tablet Take 2 tablets day 1 then 1 tablet daily 12/27 completed Not Available Not Available Not Available pravastat in 40 mg tablet Take 1 tablet every day by oral route in the evening for 30 days. 2011 active Not Available Not Available Not Avai lable ibuprofen 800 mg tablet TAKE 1 TABLET BY MOUTH THREE TIMES DAILY NEEDED 06/21 completed Not Available Not Available Not Available hydrocodo ne 5 mg-acetam inophen 325 mg tablet 10/23 completed Not Available Not Available Not Available meloxicam 15 mg tablet 10/19 completed Not Available Not Available Not Available prednison e 20 mg tablet TAKE 2 TABLETS BY MOUTH ONCE DAILY FOR 3 DAYS THEN 1 TABLET ONCE DAILY FOR 4 DAYS. 06/21 completed Not Available Not Available Not Available ciproflox acin 500 mg tablet TAKE 1 TABLET BY MOUTH TWICE DAILY DIRECTED 06/21 completed Not Available Not Available Not Available sulfameth oxazole 800 mg-trimet hoprim 160 mg tablet TAKE 1 TABLET BY MOUTH TWICE DAILY 10/23 completed Not Available Not Available Not Available aspirin 81 mg tablet,de layed release Take 1 tablet every day by oral route. 06/21 completed Not Available Not Available Not Available bisoprolo l 2.5 mg-hydroc hlorothia zide 6.25 mg tablet TAKE 1 TABLET BY MOUTH ONCE DAILY . APPOINTM ENT REQUIRED FOR FUTURE REFILLS 2024 active Not Available Not Available Not Avai lable tramadol 50 mg tablet 06/21 completed Not Available Not Available Not Available cyclopent olate 1 % eye drops INSTILL 1 DROP INTO AFFECTED EYE UPON AWAKENIN G THEN 1 DROP WHEN LEAVING HOME THEN 1 DROP UPON ARRIVAL DIRECTED . 06/21 completed Not Available Not Available Not Available ceftriaxo ne 1 gram solution for injection Take 1 g by injectio n route. 01/19 completed Rocephin Not Available Not Available Not Available Tylenol PM 25 mg-500 mg tablet Take 2 tablets every day by oral route as needed. 06/21 completed Not Available Not Available Not Available linezolid 600 mg tablet TAKE 1 TABLET BY MOUTH TWICE DAILY 05/24 completed Not Available Not Available Not Available erythromy johnie 5 mg/gram (0.5 %) eye ointment APPLY TOPICALL Y TO LEFT EYE LID TWICE A DAY NEEDED active Not Available Not Available No t Available lisinopri l 10 mg tablet TAKE 1 TABLET BY MOUTH ONCE DAILY 04/14 completed Not Available Not Available Not Available nicotine 21 mg/24 hr daily transderm al patch 06/21 completed Not Available Not Available Not Available nitroglyc gamal 0.4 mg sublingua l tablet Place 1 tablet by sublingu al route. 06/21 completed Not Available Not Available Not Available gabapenti n 300 mg capsule Take 1 or 2 capsule( s) q pm prn. 01/19 completed Not Available Not Available Not Available amoxicill in 250 mg capsule 10/12 completed Not Available Not Available Not Available Proventil HFA 90 mcg/actua tion aerosol inhaler Inhale 2 puffs every 4 hours by inhalati on route as needed. active Not Available Not Available No t Available dexametha sone sodium phosphate 4 mg/mL injection solution Inject 1 mL by intramus cular route. 10/19 completed Not Available Not Available Not Available levofloxa johnie 500 mg tablet Take 1 tablet every 24 hours by oral route. active Not Available Not Available No t Available methylpre dnisolone 4 mg tablets in a dose pack take as directed 01/24 completed Not Available Not Available Not Available metformin ER 500 mg tablet,ex tended release 24 hr Take 1 tablet by mouth once daily 2022 active Not Available Not Available Not Avai lable amoxicill in 875 mg-potass ium clavulana te 125 mg tablet Take 1 tablet every 12 hours by oral route for 10 days. 06/21 completed Not Available Not Available Not Available neomycin- polymyxin -hydrocor t 3.5 mg-10,000 unit/mL-1 % ear drops,roberto p Instill 4 drops 4 times a day by otic route for 7 days. 06/21 completed Not Available Not Available Not Available Tylenol PM Extra Strength 25 mg-500 mg tablet Take 2 tablets every day by oral route at bedtime. active Not Available Not Available No t Available rosuvasta tin 20 mg tablet TAKE 1 TABLET BY MOUTH ONCE DAILY 10/23 completed Not Available Not Available Not Available bupropion HCl XL 150 mg 24 hr tablet, extended release 06/21 completed Not Available Not Available Not Available dimethyl sulfoxide (bulk) 99.99 % liquid active Not Available Not Available Not Available multivita min one dose daily as directed active Not Available Not Available No t Available Vitals Date Recorded Body height Body mass index (BMI) Body weight Heart rate Oxygen saturation Oxygen saturation in Arterial blood by Pulse oximetry Body temperature Systolic blood pressure Diastolic blood pressure Provider Name and Address Organization Details Last Updated DateTime 0 172.72 cm 31.5 kg/m2 95775.7 2 g 84 /min 98 % 98 % 97.5 [degF] 126 mm[Hg] 84 mm[Hg] [facility] 0 10:31:13 Date Recorded Body height Body mass index (BMI) Body weight Heart rate Oxygen saturation Oxygen saturation in Arterial blood by Pulse oximetry Body temperature Systolic blood pressure Diastolic blood pressure Provider Name and Address Organization Details Last Updated DateTime 0 172.72 cm 31.7 kg/m2 48939.6 1 g 75 /min 98 % 98 % 98.1 [degF] 132 mm[Hg] 84 mm[Hg] [facility] 0 09:28:27 Date Recorded Body height Body mass index (BMI) Body weight Heart rate Oxygen saturation Oxygen saturation in Arterial blood by Pulse oximetry Body temperature Systolic blood pressure Diastolic blood pressure Provider Name and Address Organization Details Last Updated DateTime 1 172.72 cm 32 kg/m2 65927.5 g 85 /min 98 % 98 % 97.5 [degF] 171 mm[Hg] 92 mm[Hg] [facility] 1 09:37:05 Date Recorded Body height Body mass index (BMI) Body weight Heart rate Oxygen saturation Oxygen saturation in Arterial blood by Pulse oximetry Body temperature Systolic blood pressure Diastolic blood pressure Provider Name and Address Organization Details Last Updated DateTime 3 172.72 cm 31.5 kg/m2 67727.7 2 g 100 /min 98 % 98 % 97.2 [degF] 137 mm[Hg] 90 mm[Hg] [facility] 3 09:55:04 Date Recorded Body height Body mass index (BMI) Body weight Heart rate Oxygen saturation Oxygen saturation in Arterial blood by Pulse oximetry Body temperature Systolic blood pressure Diastolic blood pressure Provider Name and Address Organization Details Last Updated DateTime 3 172.72 cm 31.6 kg/m2 75986.9 1 g 100 /min 98 % 98 % 98.4 [degF] 173 mm[Hg] 96 mm[Hg] [facility] 3 10:30:21 Social History Question Answer Notes LastModified by Organizat ion Details LastModified Time Tobacco Smoking Status Current Every Day Smoker Not Available [facility] 01/20/2020 03:11:17 Do You Have An Advance Directive? No [id number] Information not available 01/20/2020 What Is Your Level Of Alcohol Consumption? Occasional [id number] Information not available 01/20/2020 Animal Exposure? Yes Informat ion not available 06/02/2011 Auto Related Injury? No Information not available 06/02/2011 Is Blood Transfusion Acceptable In An Emergency? Yes [id number] Information not available 01/20/2020 What Is Your Level Of Caffeine Consumption? Occasional Information not available 06/21/2020 How Much Tobacco Do You Chew? None [id number] Information not available 01/20/2020 Are You Currently Employed? Yes [id number] Information not available 01/20/2020 Diabetes No Information no t available 06/02/2011 What Type Of Diet Are You Following? REGULAR [id number] Information not available 01/20/2020 Education 2 Year College Informatio n not available 06/02/2011 Who Is Your Employer? 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 Yes Information not available 06/02/2011 High Blood Pressure Yes Information not available 06/02/2011 Live Alone Or With Others? With Others Information not available 06/02/2011 Marital Status Single Informatio n not available 06/02/2011 What Was The Date Of Your Most Recent Tobacco Screening? 10/23/2022 Information not available 10/23/2022 How Many Children Do You Have? 1 [id number] Information not available 01/20/2020 What Is Your Relationship Status? Information not available 06/21/2020 Seat Belts Used Routinely Yes Information not available 06/02/2011 Are You Sexually Active? Yes Information not available 06/21/2020 Smoke Alarm In Home Yes Information not available 06/02/2011 At What Age Did You Start Smoking Tobacco? 19 Information not available 06/21/2020 How Much Tobacco Do You Smoke? 0.5 PPD [id number] Information not available 01/20/2020 General Stress Level Medium Information not available 06/02/2011 Do You Use Sunscreen Routinely? Yes [id number] Information not available 01/20/2020 How Many Years Have You Smoked Tobacco? 20 Information not available 06/21/2020 Do You Or Have You Ever Used Any Other Forms Of Tobacco Or Nicotine? No Information not available 06/21/2020 Sex: Unknown Functional Status Question Answer Note LastModified by Organizat ion Details LastModified Time Are you able to care for yourself? Yes [id number] Information not available 01/20/2020 What is your exercise level? Occasional [id number] Information not available 01/20/2020 Mental Status None recorded. Family History Relationship Description Onset Age of this Age Resolved Age Notes LastModified by Organization Details LastModified Time Father Hypertensive disorder 74 diabet es (previ ously record ed as Hypert ension ) Not available 07/29/2015 11:40:33 Sister Hypertensive disorder 54 previo usly record ed as Hypert ension Not available 07/29/2015 11:40:33 Sister Myocardial infarction 53 54 Not available 06/01 11:46:12 Medical History Condition Response Coronary Artery Disease N Gout N Kidney Stones N Blood Diseases N Hyperthyroidism N Hypothyroidism N Depression N COPD N Developmental or Behavioral Disorders N Eczema, Hives or other skin conditions N Anxiety Disorder N Muscle, Joint, or Bone Problems N Vision or Eye Problems N Arthritis N Serious Illness or Injuries N Congenital Anomalies N Cancer N Stroke N Bladder or Kidney Problems N Hospital Admission other than N High Cholesterol N Liver Disease N Fibromyalgia N Kidney Disease N Heart Problems N Ear or Hearing Problems N ADD or ADHD N Thyroid Problems N Skin Problems N Anemia N Constipation N Diabetes N Bedwetting N Seizures/Epilepsy N Tuberculosis N Diverticulitis N Asthma N Allergies N GERD/Reflux N Heart Disease N Pulmonary Embolism N Hypertension Y Osteoporosis N Chicken Pox N Gynecological History Statement/Question Response Flow Moderate Date of LMP 05/23/2011 Menses Monthly Y Duration of Flow (days) 6 Age at Menarche 10 Current Control Method None LMP Approximate Age at First Child 24 Obstetrics History GPAL:G 0 P 0 0 0 0 Immunizations Vaccine Type Date Status Note Provider Nam e and Address Organization Details Recorded Time SARS-COV-2 (COVID-19) vaccine, UNSPECIFIED 06/22/2020 completed Hannah Garcia MD [address], [address], Marycruz Trammell 06/21/2020 10:13:25 Past Encounters Encounter ID Performer Location Encounter Start Date Encounter Closed Date Diagnosis/Indication Diagnosis SNOMED-CT Code Diagnosis ICD10 Code Diagnosis Note Hannah Garcia MD [address] [address] 06/02/2011 16:00:58 06/02/2011 18:19:03 [id number] Hannah Garcia MD [address] [address] 06/13/2011 15:29:29 06/14/2011 09:29:55 [id number] Hannah Garcia MD [address] [address] 09/16/2012 14:11:18 09/16/2012 16:52:57 [id number] Hannah Garcia MD [address] [address] 03/11/2015 13:56:35 03/11/2015 15:25:52 Acute sinusitis 03936629 J01.90 Wheezing 99285452 R06.2 Acute bronchitis 8230371 2 J20.9 Tobacco de pendence syndrome 74541201 F17.290 [id number] Hannah Garcia MD [address] [address] 07/29/2015 09:43:14 07/29/2015 16:51:46 Carpal tunnel syndrome 95849662 G56.01 Neck pain 91494551 M54.2 [id number] Hannah Garcia MD [address] [address] 01/20/2016 10:08:37 01/23/2016 15:50:58 Acute sinusitis 62822760 J01.90 Acute bronchitis 5816429 2 J20.9 Body mass index 25-29 - overweight 560833273 Z68.28 Tobacco de pendence syndrome 23552911 F17.290 [id number] Hannah Garcia MD [address] [address] 06/01/2017 10:48:58 06/01/2017 16:40:17 Chest pain 77571359 R07.9 Essential hypertension 80236235 I10 she will take 2 ziac 2.5 mg daily until cardiology appointmen t as she just got med filled. Hyperlipidemia 77044021 E78.5 Fatigue 83830409 R53.83 Tobacco user 002733752 Z 72.0 Body mass index 30+ - obesity 872990534 Z68.30 [id number] Hannah Garcia MD [facility] [address] [place] [phone] 10/13/2019 10:21:46 10/13/2019 12:05:24 Acute otitis externa 35694868 H60.509 Acute otitis media 13900 03 H66.92 [id number] Hannah Garcia MD [facility] [address] [place] [phone] 7 10/20/2019 09:24:01 10/20/2019 13:41:25 Otitis externa 0650115 H60.92 [id number] Hannah Garcia MD [facility] [address] [place] [phone] 7 06/21/2020 09:31:07 06/22/2020 08:02:38 Adult health examination 109942261 Z00.00 Hyperlipidemia 55288551 E78.5 Essential hypertension 09900292 I10 Screening mammography 24 954834 Z12.31 Screening for malignant neoplasm of colon 789249826 Z12.11 Fatigue 38666259 R53.83 Tobacco user 402214687 Z 72.0 Body mass index 30+ - obesity 897741202 Z68.32 [id number] Hannah Garcia MD [facility] [address] [place] [phone] 10/23/2022 09:47:28 10/26/2022 08:23:05 Adult health examination 736396630 Z00.00 Hyperlipidemia 55751711 E78.5 Essential hypertension 69569459 I10 Screening mammography 24 401252 Z12.31 Screening for malignant neoplasm of colon 938307264 Z12.11 Fatigue 94352881 R53.83 Tobacco user 664543679 Z 72.0 Body mass index 30+ - obesity 812688786 Z68.32 Prediabetes 068195328 R7 3.03 Active or passive immunization 601779265 Z23 Immunization advised 310 454254 Z71.9 Screening for cardiovascular system disease 350538893 Z13.6 [id number] Hannah Garcia MD [facility] [address] [facility], [facility] [address] [place] [address] 12/01/2022 10:01:31 12/04/2022 09:21:14 Essential hypertension 64985996 I10 Goiter 5573355 E04.9 Health Concerns Section Related Observation LastModified by Organization Detai ls LastModified Time None Recorded Concern Status LastModified by Organization Details LastModified Time None Recorded Advance Directives Directive N: Payers Encounter Date Sequence Insurance Name Policy Number Policy Patel Covered Member ID Patel Member ID Guarantor Name 10/13/2019 1 [place] [id number] 1 Kemal Lama [id number] Donita Nobles 10/20/2019 1 [place] [id number] 1 Kemal Ravione [id number] Donita Nobles 06/21/2020 1 [employer] - OPEN ACCESS - NATIONAL (POS) [id number] Donita Nobles [id number] Donita Nobles 10/23/2022 1 [place] [id number] 1 Donita [id number] Donita Nobles 12/01/2022 1 [place] [id number] 1 Donita [id number] Donita Nobles Notes Date Note Type Note Provider Name and Address Organization Details Recorded Time 10/13/2019 text/html ears are hurting her since sunday evening and she had been on vacation and was swimming a lot No fevers Had 4 antibiotics from a tooth abscess and took the amoxil this weekend. No sinus symptoms. Hannah Garcia MD [address] [facility], [facility] [address], [place], [address], [facility] 10/13/2019 11:02:15 10/20/2019 text/html she has been compliant with the antibiotic and tried the ear suspension but that made it actually hurt worse She has been taking the Augmentin and ibuprofen Denies any fevers but the pain is getting unbearable. Hannah Garcia MD [address] [address], [place], [phone], [facility] 10/20/2019 13:39:28 06/21/2020 text/html she worries abou t her granddaughter age 7 who is not with her son now and she is not getting her but every other weekend. Hannah Garcia MD [address] [address], [place], [address], [facility] 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 It is all healed now and she goes back every 3 months for a skin check. She required no other treatments.She has cut out sweet tea and sugars and does work in her garden.She is a little confused about her BP medication and has been filling the bisoprolol/hct and she thought she was taking lisinopril but has not had that filled since 2020. States she could not tolerate the statinShe has not had tetanus vaccine for years. Took only one covid vaccine and never had it.Is behind on pap smears and sees Dr. White in [place] Hannah Garcia MD [address] [address], [place], [address], [facility] 10/24/2022 23:35:23 12/01/2022 text/html her derm thinks there is some thyroid enlargement and that is possible.BP still elevated so will add losartan as previously she could not tolerate Lisinopril and she thinks it was due to a cough.Also she is scheduled for the colonoscopy end of December. Hannha Garcia MD [address] [facility], [address] [address], [place], [phone], [facility] 12/03/2022 22:07:26 OBGyn Episode No OBEpisode recorded.
[2024-08-02 14:48] LABS: Microscopic, Urine URINE MICROSCOPIC (MICROSCOPIC)
[2024-08-02 14:49] LABS: Appearance,Urine CLEAR (Clear); Bilirubin,Urine Negative (Negative); Blood, Urine Negative (Negative); Color,Urine YELLOW (Yellow); Glucose,Urine (UA) Negative (Negative); Ketones,Urine Negative (Negative); Leukocyte Esterase,Urine Negative (Negative); Nitrate,Urine Negative (Negative); Protein,Urine Negative (Negative); Urobilinogen,Urine 0.2 EU/dl (0.2)
--- NOTE | 2024-08-02 14:51 | ECG_ITS ---
APPROVED REPORT Exam: Resting ECG HR:92 bpm ECG Measurements Heart Rate 92 AXES KS 156 P 53 QRSd 86 QRS 14 QT 356 T 51 QTc 406 Conclusion Sinus rhythm No acute ischemic change Electronically signed by : SCOTT FELTON, 08/02/2024 22:52:16
[2024-08-02] MEDS: 0.9 % SODIUM CHLORIDE 1000ML 1,000 ML 999 ML IV (15:14)
[2024-08-02] MEDS: MORPHINE 4MG/ML SYRINGE 4 MG IV (15:15)
[2024-08-02] MEDS: ONDANSETRON 4MG/2ML VIAL 4 MG IV (15:15)
[2024-08-02] MEDS: SODIUM CHLORIDE 0.9% 10ML VIAL 8 ML IV (15:15)
[2024-08-02] MEDS: FAMOTIDINE 20MG/2ML VIAL 20 MG IV (15:15)
[2024-08-02 15:19] LABS: Basophils # 0.1 K/mm3 (0-0.2); Basophils % 0.6 % (0.1-2.0); Eosinophils % 0.1 % (0.1-12.0); Hematocrit 44.9 % (37.0-47.0); Hemoglobin 15.4 g/dL (12.2-16.2); Immature Granulocytes # 0.14 10^3uL; Immature Granulocytes % 0.8 %; Lymphocytes # 2.4 K/mm3 (0.7-4.5); Lymphocytes % 14.6 % (10-50); Mean Corpuscular HGB Conc 34.3 g/dL (31.8-35.4); Mean Corpuscular Volume 96.1 fl (81-99); Mean Platelet Volume 11.7 fl (7.4-10.4); Monocytes # 1.3 K/mm3 (0.1-1.0); Monocytes % 7.7 % (1.7-9.3); Neutrophils # 12.7 K/mm3 (1.8-7.8); Neutrophils % 76.2 % (37.0-80.0); Nucleated Red Blood Cells # 0 10^3/uL; Nucleated Red Blood Cells % 0 %; Platelet Count 226 K/mm3 (142-424); Red Blood Count 4.67 M/mm3 (4.20-5.40); Red Cell Distribution Width 12.8 % (11.5-17.5); Red Cell Distribution Width-SD 45.1 fL; White Blood Count 16.7 K/mm3 (4.8-10.8)
[2024-08-02 15:24] LABS: Bacteria,Urine Trace /lpf; WBC,Urine Occasional #/hpf (0-3)
--- NOTE | 2024-08-02 15:24 | PC.NURSE ---
Patients FSBS is 128.
--- NOTE | 2024-08-02 15:31 | ED_ITS ---
Discharge Plan Disposition Patient Disposition: Still a Patient Condition: Fair Clinical Impressions Clinical Impression: Acute appendicitis Discharge ED Provider: Frandy Underwood General Adult HPI <Joann Elias (ED), FOOD SERVICE ASSISTANT - Last Filed: 08/02/24 19:03> General Chief complaint: Abdominal Pain Stated complaint: Severe abd.pain Time Seen by Provider: 08/02/24 14:43 Mode of Arrival: Ambulatory Source of Information: Patient Description of Symptoms (Recalled from ER Triage Doc. by RN): pt presents to ED with c/o abdominal pain. pt reports symptoms began last night. cramping and sharp in nature. left side worse than right side but generalized all over. History of Present Illness HPI narrative: 58-year-old female presents to the ED today for complaint of abdominal pain that is diffuse in nature. She says it started hurting last Sunday improved and then started hurting again last night. She says 20 years ago she had her gallbladder removed and then had a sphincter problem. She states that it was not working properly. She says the only thing that relieves her pain is hot water. She says she does have nausea but no vomiting. She has no chest pain or shortness of breath. No other symptoms at this time. Related Data Home Medications ?Medication ?Instructions ?Recorded ?Confirmed fluoxetine 40 mg capsule (Prozac) 40 mg PO DAILY Anxiety 11/13/17 01/11/23 bisoprolol 2.5 1 tab PO DAILY htn 12/28/22 01/11/23 mg-hydrochlorothiazide 6.25 mg tablet lisinopril 5 mg tablet 10 mg PO DAILY htn 12/28/22 12/28/22 metformin 500 mg tablet 500 mg PO DAILY dibetes 12/28/22 12/28/22 Allergies Allergy/AdvReac Type Severity Reaction Status Date / Time No Known Allergies Allergy Verified 01/11/23 11:32 PFSH <Joann Elias (ED), FOOD SERVICE ASSISTANT - Last Filed: 08/02/24 19:03> PFS Disclaimer: The information contained in this section may have been updated after the patient was seen, as this information can be updated by other users. Medical History Abscess Cataract Hx MRSA infection Hx of thyroid nodule Surgical History History of cholecystectomy Hx of blepharoplasty Hx of cataract surgery Hx of melanoma excision Family History Other Family history of diabetes mellitus type II Family history of myocardial infarction Social History (Updated 01/11/23 @ 11:46 by Himanshu Lopez CRNA) Smoking Status: Current every day smoker tobacco type: cigarettes alcohol intake: never substance use type: denies use current occupational status: employed Travel in the last 8 weeks?: None caffeine: No Have you lived/traveled outside US in past 30 days?: No Contact w/someone who lives/traveled outside US past 30 days?: No Exposure to someone with infectious disease in past 14 days?: No Do you have a fever (greater than 100.4 F or 38 C)?: No Have you tested positive for COVID-19?: No Exposed to someone with COVID-19 in past 14 days?: No Do you have a sore throat?: No Do you have a cough?: No Do you have any weakness?: No Do you have any diarrhea?: No Are you experiencing any unusual bleeding?: No Do you have any muscle aches/pain?: No Do you have any abdominal pain?: No Are you experiencing loss of taste or smell?: No <Joann Elias (ED), FOOD SERVICE ASSISTANT - Last Filed: 08/02/24 19:03> ROS Obtained: Yes Systems reviewed as appropriate & no additional complaints except as documented Constitutional Constitutional: Reports as per HPI Physical Exam <Joann Elias (ED), FOOD SERVICE ASSISTANT - Last Filed: 08/02/24 19:03> General General appearance: alert, anxious and in distress Comment: Abdominal pain Head Head exam: atraumatic and normocephalic Eye Eye exam: Present normal appearance, PERRL and EOMI ENT ENT exam: Present normal exam, normal oropharynx and mucous membranes moist Neck Neck exam: Present normal inspection, full ROM and trachea midline Respiratory Respiratory exam: Present normal lung sounds bilaterally Cardiovascular Cardiovascular exam: Present regular rate, normal rhythm, normal heart sounds, +S1 and +S2 Abdominal Exam Abdominal exam: Present soft and normal bowel sounds Abdominal tenderness: Present diffuse Comment: Throughout Extremities Exam Extremities exam: Present normal inspection, full ROM and normal capillary refill Neurological Exam Neurological exam: Present alert and oriented X3 Skin Skin exam: Present warm, dry and intact Medical Decision Making <Joann Elias (ED), FOOD SERVICE ASSISTANT - Last Filed: 08/02/24 19:03> Medical Records Screening: Per USPSTF and CDC recommendations, given the prevalence of disease in our region, it is our hospital?s policy to screen for HIV and viral Hepatitis for all patients aged 18 and over and those with ongoing risk factors. Jose Inquiry Pt receiving controlled substance: Yes Jose was queried for this patient: No Risks and benefits of using a controlled substance: were discussed with pt by me Vital Signs: 08/02/24 14:51 08/02/24 15:01 08/02/24 15:30 Temperature 98.4 F Temperature Source Oral Pulse Rate 84 89 Pulse Rate [Left Radial] 96 H Respiratory Rate 19 12 18 Blood Pressure 141/88 H 162/95 H Blood Pressure [Right Arm] 150/87 H Blood Pressure Mean Blood Pressure Mean [Right Arm] 108 Blood Pressure Source [Right Arm] Blood Pressure Position [Right Arm] 02 Sat by Pulse Oximetry 99 97 96 Oxygen Delivery Method Room Air Room Air 08/02/24 16:00 08/02/24 16:30 08/02/24 17:01 Temperature 99.1 F Temperature Source Oral Pulse Rate 81 81 Pulse Rate [Left Radial] 85 Respiratory Rate 15 16 16 Blood Pressure 165/82 H 156/83 H Blood Pressure [Right Arm] 152/70 H Blood Pressure Mean Blood Pressure Mean [Right Arm] 97 Blood Pressure Source [Right Arm] Automatic Cuff Blood Pressure Position [Right Arm] Sitting 02 Sat by Pulse Oximetry 98 98 97 Oxygen Delivery Method Room Air Room Air Room Air 08/02/24 17:07 08/02/24 17:30 08/02/24 17:55 Temperature 99.1 F Temperature Source Pulse Rate 84 81 81 Pulse Rate [Left Radial] Respiratory Rate 16 Blood Pressure 152/70 H 141/82 H 141/82 H Blood Pressure [Right Arm] Blood Pressure Mean 114 Blood Pressure Mean [Right Arm] Blood Pressure Source [Right Arm] Blood Pressure Position [Right Arm] 02 Sat by Pulse Oximetry 97 94 L Oxygen Delivery Method Room Air Lab Data Lab Results 08/02/24 14:39: Urine Color Yellow, Urine Appearance Clear, Urine pH 7.0, Ur Specific Alice 1.020, Urine Protein Negative, Urine Glucose (UA) Negative, Urine Ketones Negative, Urine Blood Negative, Urine Nitrate Negative, Urine Bilirubin Negative, Urine Urobilinogen 0.2, Ur Leukocyte Esterase Negative, Urine RBC 3-5, Urine WBC Occasional, Ur Squamous Epith Cells 5-10, Urine Bacteria Trace 08/02/24 15:05: WBC 16.7 H, RBC 4.67, Hgb 15.4, Hct 44.9, MCV 96.1, MCH 33.0 H, MCHC 34.3, RDW 12.8, Plt Count 226, MPV 11.7 H, Neut % (Auto) 76.2, Lymph % (Auto) 14.6, Bent % (Auto) 7.7, Eos % (Auto) 0.1, Baso % (Auto) 0.6, Neut # (Auto) 12.7 H, Lymph # (Auto) 2.4, Bent # (Auto) 1.3 H, Eos # (Auto) 0.0, Baso # (Auto) 0.1, ESR 21, Sodium 136, Potassium 3.9, Chloride 104, Carbon Dioxide 23, Anion Gap 12.9, BUN 15, Creatinine 0.90, Estimated Creat Clear 96, Estimated GFR 64, Est GFR ( Amer) 78, Glucose 130 H, Calcium 9.9, Magnesium 1.8, Total Bilirubin 0.8, AST 52 H, ALT 60, Alkaline Phosphatase 132 H, Troponin I < 0.01, C-Reactive Protein 32.1 H, Total Protein 8.2, Albumin 4.9, Globulin 3.3 H, Albumin/Globulin Ratio 1.5, Lipase 91, HCV Ab MELCHOR w/Rflx PCR Qn Negative, HIV Ag/Ab Combo Qual Negative 08/02/24 16:43: Lactate 1.2 08/02/24 15:05 08/02/24 15:05 Orders (Tests/Meds): ED MEDICATIONS Generic Name Dose Route Start Last Admin Trade Name Freq PRN Reason Stop Dose Admin Hydromorphone HCl 0.5 mg 08/02/24 15:58 08/02/24 16:40 Hydromorphone 2mg/Ml Syringe IV 09/01/24 15:57 0.5 mg Q2HP PRN Administration Severe Pain (7-10) Piperacillin Sod/Tazobactam 100 mls @ 200 mls/hr 08/02/24 23:00 08/02/24 17:02 Sod 4.5 gm/ Sodium Chloride IV 08/12/24 22:59 200 mls/hr Q6H RUDY Administration Sodium Chloride 8 ml 08/02/24 14:43 08/02/24 15:15 Sodium Chloride 0.9% 10ml Vial IV 09/01/24 14:42 8 ml NEEDED PRN Administration dilute pepcid Sodium Chloride 10 ml 08/02/24 16:08 08/02/24 16:09 Sodium Chloride 0.9% 10ml Syr (Rad Only) IV 09/01/24 16:07 10 ml NEEDED PRN Administration Maintain IV Site Discontinued Medications Generic Name Dose Route Start Last Admin Trade Name Freq PRN Reason Stop Dose Admin Famotidine 20 mg 08/02/24 14:43 08/02/24 15:15 Famotidine 20mg/2ml Vial IV 08/02/24 14:44 20 mg ONCE ONE Administration Sodium Chloride 1,000 mls @ 999 mls/hr 08/02/24 14:43 08/02/24 15:14 Sod Chlor 0.9% 1000ml Bag IV 08/02/24 15:43 999 mls/hr .Q1H1M ONE Administration Iopamidol 75 ml 08/02/24 16:08 08/02/24 16:09 Iopamidol-370 (76%);100ml Bottle IV 08/02/24 16:09 75 ml ONCE ONE Administration Morphine Sulfate 4 mg 08/02/24 14:43 08/02/24 15:15 Morphine 4mg/Ml Syringe IV 08/02/24 14:44 4 mg ONCE ONE Administration Ondansetron HCl 4 mg 08/02/24 14:43 08/02/24 15:15 Ondansetron 4mg/2ml Vial IV 08/02/24 14:44 4 mg ONCE ONE Administration ORDERS Category Date Time Status CT abdomen pelvis w con Stat Cat Scan 08/02/24 14:44 Completed C-Reactive Protein Stat Lab 08/02/24 15:05 Completed CBC [Complete Blood Count Auto Diff] Stat Lab 08/02/24 15:05 Completed Comprehensive Metabolic Panel Stat Lab 08/02/24 15:05 Completed Erythrocyte Sedimentation Rate Stat Lab 08/02/24 15:05 Completed HIV Combo Stat Lab 08/02/24 15:05 Completed Hepatitis C Ab Qual. W/ RFX Stat Lab 08/02/24 15:05 Completed Lactic Acid Stat Lab 08/02/24 16:43 Completed Lipase Stat Lab 08/02/24 15:05 Completed Magnesium Stat Lab 08/02/24 15:05 Completed Trop I [Troponin I] Stat Lab 08/02/24 15:05 Completed Troponin I Q3H Lab 08/02/24 20:45 Ordered Urinalysis and Microscopic Stat Lab 08/02/24 14:39 Completed Medical Decision Narrative: Insert review patient is a 58-year-old female presenting to the emergency department for evaluation of diffuse abdominal pain that worsened last night. Patient is hemodynamically stable and nontoxic-appearing upon arrival, afebrile. Differential diagnosis includes pancreatitis, reflux, appendicitis, among others. Workup will be conducted with hematologic labs, CT abdomen pelvis with contrast, provocative tests. Initial inventions include pain medication, nausea medication. Initial workup reviewed by md CBC showed leukocytosis, otherwise labs were normal. Imaging informally interpreted by Dr Underwood and remarkable for appendicitis. Formal imaging read remarkable for acute appendicitis. Radiology informed us that patient has acute appendicitis. Already called and is coming to do surgery. Patient aware and signed consents. Patient will be admitted per hospitalist, Kemal Beck <Frandy Underwood MD - Last Filed: 08/02/24 20:23> Vital Signs: 08/02/24 14:51 08/02/24 15:01 08/02/24 15:30 Temperature 98.4 F Temperature Source Oral Pulse Rate 84 89 Pulse Rate [Left Radial] 96 H Respiratory Rate 19 12 18 Blood Pressure 141/88 H 162/95 H Blood Pressure [Right Arm] 150/87 H Blood Pressure Mean Blood Pressure Mean [Right Arm] 108 Blood Pressure Source [Right Arm] Blood Pressure Position [Right Arm] 02 Sat by Pulse Oximetry 99 97 96 Oxygen Delivery Method Room Air Room Air 08/02/24 16:00 08/02/24 16:30 08/02/24 17:01 Temperature 99.1 F Temperature Source Oral Pulse Rate 81 81 Pulse Rate [Left Radial] 85 Respiratory Rate 15 16 16 Blood Pressure 165/82 H 156/83 H Blood Pressure [Right Arm] 152/70 H Blood Pressure Mean Blood Pressure Mean [Right Arm] 97 Blood Pressure Source [Right Arm] Automatic Cuff Blood Pressure Position [Right Arm] Sitting 02 Sat by Pulse Oximetry 98 98 97 Oxygen Delivery Method Room Air Room Air Room Air 08/02/24 17:07 08/02/24 17:30 08/02/24 17:55 Temperature 99.1 F Temperature Source Pulse Rate 84 81 81 Pulse Rate [Left Radial] Respiratory Rate 16 Blood Pressure 152/70 H 141/82 H 141/82 H Blood Pressure [Right Arm] Blood Pressure Mean 114 Blood Pressure Mean [Right Arm] Blood Pressure Source [Right Arm] Blood Pressure Position [Right Arm] 02 Sat by Pulse Oximetry 97 94 L Oxygen Delivery Method Room Air Lab Data Lab Results 08/02/24 14:39: Urine Color Yellow, Urine Appearance Clear, Urine pH 7.0, Ur Specific Alice 1.020, Urine Protein Negative, Urine Glucose (UA) Negative, Urine Ketones Negative, Urine Blood Negative, Urine Nitrate Negative, Urine Bilirubin Negative, Urine Urobilinogen 0.2, Ur Leukocyte Esterase Negative, Urine RBC 3-5, Urine WBC Occasional, Ur Squamous Epith Cells 5-10, Urine Bacteria Trace 08/02/24 15:05: WBC 16.7 H, RBC 4.67, Hgb 15.4, Hct 44.9, MCV 96.1, MCH 33.0 H, MCHC 34.3, RDW 12.8, Plt Count 226, MPV 11.7 H, Neut % (Auto) 76.2, Lymph % (Auto) 14.6, Bent % (Auto) 7.7, Eos % (Auto) 0.1, Baso % (Auto) 0.6, Neut # (Auto) 12.7 H, Lymph # (Auto) 2.4, Bent # (Auto) 1.3 H, Eos # (Auto) 0.0, Baso # (Auto) 0.1, ESR 21, Sodium 136, Potassium 3.9, Chloride 104, Carbon Dioxide 23, Anion Gap 12.9, BUN 15, Creatinine 0.90, Estimated Creat Clear 96, Estimated GFR 64, Est GFR ( Amer) 78, Glucose 130 H, Calcium 9.9, Magnesium 1.8, Total Bilirubin 0.8, AST 52 H, ALT 60, Alkaline Phosphatase 132 H, Troponin I < 0.01, C-Reactive Protein 32.1 H, Total Protein 8.2, Albumin 4.9, Globulin 3.3 H, Albumin/Globulin Ratio 1.5, Lipase 91, HCV Ab MELCHOR w/Rflx PCR Qn Negative, HIV Ag/Ab Combo Qual Negative 08/02/24 16:43: Lactate 1.2 Orders (Tests/Meds): ED MEDICATIONS Generic Name Dose Route Start Last Admin Trade Name David PRN Reason Stop Dose Admin Hydromorphone HCl 0.5 mg 08/02/24 15:58 08/02/24 16:40 Hydromorphone 2mg/Ml Syringe IV 09/01/24 15:57 0.5 mg Q2HP PRN Administration Severe Pain (7-10) Piperacillin Sod/Tazobactam 100 mls @ 200 mls/hr 08/02/24 23:00 08/02/24 17:02 Sod 4.5 gm/ Sodium Chloride IV 08/12/24 22:59 200 mls/hr Q6H RUDY Administration Sodium Chloride 8 ml 08/02/24 14:43 08/02/24 15:15 Sodium Chloride 0.9% 10ml Vial IV 09/01/24 14:42 8 ml NEEDED PRN Administration dilute pepcid Sodium Chloride 10 ml 08/02/24 16:08 08/02/24 16:09 Sodium Chloride 0.9% 10ml Syr (Rad Only) IV 09/01/24 16:07 10 ml NEEDED PRN Administration Maintain IV Site Discontinued Medications Generic Name Dose Route Start Last Admin Trade Name David PRN Reason Stop Dose Admin Famotidine 20 mg 08/02/24 14:43 08/02/24 15:15 Famotidine 20mg/2ml Vial IV 08/02/24 14:44 20 mg ONCE ONE Administration Sodium Chloride 1,000 mls @ 999 mls/hr 08/02/24 14:43 08/02/24 15:14 Sod Chlor 0.9% 1000ml Bag IV 08/02/24 15:43 999 mls/hr .Q1H1M ONE Administration Iopamidol 75 ml 08/02/24 16:08 08/02/24 16:09 Iopamidol-370 (76%);100ml Bottle IV 08/02/24 16:09 75 ml ONCE ONE Administration Morphine Sulfate 4 mg 08/02/24 14:43 08/02/24 15:15 Morphine 4mg/Ml Syringe IV 08/02/24 14:44 4 mg ONCE ONE Administration Ondansetron HCl 4 mg 08/02/24 14:43 08/02/24 15:15 Ondansetron 4mg/2ml Vial IV 08/02/24 14:44 4 mg ONCE ONE Administration ORDERS Category Date Time Status CT abdomen pelvis w con Stat Cat Scan 08/02/24 14:44 Completed C-Reactive Protein Stat Lab 08/02/24 15:05 Completed CBC [Complete Blood Count Auto Diff] Stat Lab 08/02/24 15:05 Completed Comprehensive Metabolic Panel Stat Lab 08/02/24 15:05 Completed Erythrocyte Sedimentation Rate Stat Lab 08/02/24 15:05 Completed HIV Combo Stat Lab 08/02/24 15:05 Completed Hepatitis C Ab Qual. W/ RFX Stat Lab 08/02/24 15:05 Completed Lactic Acid Stat Lab 08/02/24 16:43 Completed Lipase Stat Lab 08/02/24 15:05 Completed Magnesium Stat Lab 08/02/24 15:05 Completed Trop I [Troponin I] Stat Lab 08/02/24 15:05 Completed Troponin I Q3H Lab 08/02/24 20:45 Ordered Urinalysis and Microscopic Stat Lab 08/02/24 14:39 Completed Medical Decision Narrative: Insert review patient is a 58-year-old female presenting to the emergency department for evaluation of diffuse abdominal pain that worsened last night. Patient is hemodynamically stable and nontoxic-appearing upon arrival, afebrile. Differential diagnosis includes pancreatitis, reflux, appendicitis, among others. Workup will be conducted with hematologic labs, CT abdomen pelvis with contrast, provocative tests. Initial inventions include pain medication, nausea medication. Initial workup reviewed by me CBC showed leukocytosis, otherwise labs were normal. Imaging informally interpreted by Dr Underwood and remarkable for appendicitis. Formal imaging read remarkable for acute appendicitis. Radiology informed us that patient has acute appendicitis. Already called and is coming to do surgery. Patient aware and signed consents. Patient will be admitted per hospitalist, Kemal Cummings was consulted by the MIRI, and we discussed the complexity of the problems being addressed. I approved the treatment and management plan for this patient's care in the Emergency Department, thus performing a substantive portion of the medical decision making. Frandy Underwood MD Critical Care <Joann Elias (ED), FOOD SERVICE ASSISTANT - Last Filed: 08/02/24 19:03> Critical Care Time Critical Care Time: No <Frandy Underwood MD - Last Filed: 08/02/24 20:23> Critical Care Time Critical Care Time: Yes (GI, surgical) Attestation: On 08/02/24, the high probability of a clinically significant, sudden or life threatening deterioration of the following system(s) required my full and direct attention, intervention and personal management. The time I documented below is in addition to time spent performing reported procedures but includes the following listed in this critical care notation. Total Time Total Critical Care Time: 35
[2024-08-02 15:36] LABS: Albumin Level 4.9 g/dl (3.5-5.0); Chloride 104 mmol/L (98-107); Potassium 3.9 mmoL/L (3.5-5.1); Sodium 136 mmol/L (136-145)
[2024-08-02 15:39] LABS: Alanine Aminotransferase 60 U/L (12-78); Albumin/Globulin Ratio 1.5 (1.1-1.8); Alkaline Phosphatase 132 U/L (38-126); Anion Gap 12.9 mEq/L (5-15); Aspartate Amino Transferase 52 U/L (14-36); Bilirubin,Total 0.8 mg/dl (0.2-1.3); Blood Urea Nitrogen 15 mg/dl (7-17); Calcium 9.9 mg/dl (8.4-10.2); Carbon Dioxide 23 mmol/L (22.0-30.0); Creatinine Clearance Estimated 96 mL/min (50-200); Estimated Glomerular Filt Rate 64 ml/min (>60); GFR (African American) 78 ML/MIN (>60); Globulin 3.3 g/dL (1.3-3.2); Glucose 130 mg/dl (74-100); Lipase 91 U/L (23-300); Magnesium 1.8 mg/dl (1.6-2.3); Total Protein,Serum 8.2 g/dl (6.3-8.2)
[2024-08-02 15:43] LABS: Erythrocyte Sedimentation Rate 21 mm/hr (0-30)
[2024-08-02 15:44] LABS: C-Reactive Protein 32.1 mg/L (0-4)
[2024-08-02 15:57] LABS: Troponin I < 0.01 ng/ml (0.00-0.034)
[2024-08-02] MEDS: SODIUM CHLORIDE 0.9% 10ML SYR (RAD ONLY) 10 ML IV (16:09)
[2024-08-02] MEDS: IOPAMIDOL-370 (76%);100ML BOTTLE 75 ML IV (16:09)
[2024-08-02] MEDS: HYDROMORPHONE 2MG/ML SYRINGE 0.5 MG IV (16:40)
--- NOTE | 2024-08-02 16:46 | PC.NURSE ---
SADE CORREIA on phone with [employer]
--- NOTE | 2024-08-02 16:48 | PC.NURSE ---
page made out to surgeon furniture sales consultant
--- NOTE | 2024-08-02 16:48 | PC.NURSE ---
surgeon insect control aide paged per braille duplicating machine operator at this time
[2024-08-02 16:50] LABS: HIV Combo NEGATIVE (Negative)
[2024-08-02 16:58] LABS: Hepatitis C Ab Qual. W/ RFX NEGATIVE (Negative)
--- NOTE | 2024-08-02 17:01 | PC.NURSE ---
surgery team called in
[2024-08-02] MEDS: PIPERACILLIN/TAZO 4.5 GM in 0.9 % SODIUM CHLORIDE 100 ML IV ×2 (17:02→23:17)
--- NOTE | 2024-08-02 17:04 | PC.NURSE ---
on phone with hospitalist
[2024-08-02 17:05] LABS: Lactic Acid 1.2 mmol/L (0.7-2.1)
--- NOTE | 2024-08-02 17:24 | PC.NURSE ---
Dr. Oliveira at bedside
--- NOTE | 2024-08-02 17:33 | EXP.GEN.HP ---
HPI HPI HPI: Patient is a 68-year-old female with history of hypertension, diabetes, melanoma. She states that about a week ago she had symptoms of abdominal pain. This eased somewhat but never completely resolved. In the evening of 08/01/2024 she had acute severe recurrence of pain. She actually describes it as diffuse. It was eased somewhat with sitting in a warm tub. No other associated symptoms. She was evaluated in the emergency department found to have a leukocytosis of 16,700. She had CT scan which revealed findings of acute appendicitis with associated thickening of the cecal tip. Distended small bowel loops noted suggest ileus associated with the appendicitis. [facility] Disclaimer: The information contained in this section may have been updated after the patient was seen, as this information can be updated by other users. Medical History Abscess Cataract Hx MRSA infection Hx of thyroid nodule Surgical History History of cholecystectomy Hx of blepharoplasty Hx of cataract surgery Hx of melanoma excision Family History Other Family history of diabetes mellitus type II Family history of myocardial infarction Social History (Updated 01/11/23 @ 11:46 by Himanshu Lopez CRNA) Smoking Status: Current every day smoker tobacco type: cigarettes alcohol intake: never substance use type: denies use current occupational status: employed Travel in the last 8 weeks?: None caffeine: No Have you lived/traveled outside US in past 30 days?: No Contact w/someone who lives/traveled outside US past 30 days?: No Exposure to someone with infectious disease in past 14 days?: No Do you have a fever (greater than 100.4 F or 38 C)?: No Have you tested positive for COVID-19?: No Exposed to someone with COVID-19 in past 14 days?: No Do you have a sore throat?: No Do you have a cough?: No Do you have any weakness?: No Do you have any diarrhea?: No Are you experiencing any unusual bleeding?: No Do you have any muscle aches/pain?: No Do you have any abdominal pain?: No Are you experiencing loss of taste or smell?: No Meds Home Medications and Allergies Home Medications ?Medication ?Instructions ?Recorded ?Confirmed ?Type fluoxetine 40 mg capsule (Prozac) 40 mg PO DAILY Anxiety 11/13/17 01/11/23 History bisoprolol 2.5 1 tab PO DAILY htn 12/28/22 01/11/23 History mg-hydrochlorothiazide 6.25 mg tablet lisinopril 5 mg tablet 10 mg PO DAILY htn 12/28/22 12/28/22 History metformin 500 mg tablet 500 mg PO DAILY dibetes 12/28/22 12/28/22 History New Prescriptions to Start Prescriptions: Allergies Allergy/AdvReac Type Severity Reaction Status Date / Time No Known Allergies Allergy Verified 01/11/23 11:32 Exam Data for Last 24 hours Vital signs and Labs for Last 24 Hours: Temp Pulse Resp BP Pulse Ox O2 Del Method 99.1 F 84 16 152/70 H 97 Room Air 08/02/24 17:01 08/02/24 17:07 08/02/24 17:01 08/02/24 17:07 08/02/24 17:07 08/02/24 17:01 Laboratory Results - last 24 hr 08/02/24 14:39: Urine Color Yellow, Urine Appearance Clear, Urine pH 7.0, Ur Specific [place] 1.020, Urine Protein Negative, Urine Glucose (UA) Negative, Urine Ketones Negative, Urine Blood Negative, Urine Nitrate Negative, Urine Bilirubin Negative, Urine Urobilinogen 0.2, Ur Leukocyte Esterase Negative, Urine RBC 3-5, Urine WBC Occasional, Ur Squamous Epith Cells 5-10, Urine Bacteria Trace 08/02/24 15:05: WBC 16.7 H, RBC 4.67, Hgb 15.4, Hct 44.9, MCV 96.1, MCH 33.0 H, MCHC 34.3, RDW 12.8, Plt Count 226, MPV 11.7 H, Neut % (Auto) 76.2, Lymph % (Auto) 14.6, [place] % (Auto) 7.7, Eos % (Auto) 0.1, Baso % (Auto) 0.6, Neut # (Auto) 12.7 H, Lymph # (Auto) 2.4, [place] # (Auto) 1.3 H, Eos # (Auto) 0.0, Baso # (Auto) 0.1, ESR 21, Sodium 136, Potassium 3.9, Chloride 104, Carbon Dioxide 23, Anion Gap 12.9, BUN 15, Creatinine 0.90, Estimated Creat Clear 96, Estimated GFR 64, Est GFR ( Amer) 78, Glucose 130 H, Calcium 9.9, Magnesium 1.8, Total Bilirubin 0.8, AST 52 H, ALT 60, Alkaline Phosphatase 132 H, Troponin I < 0.01, C-Reactive Protein 32.1 H, Total Protein 8.2, Albumin 4.9, Globulin 3.3 H, Albumin/Globulin Ratio 1.5, Lipase 91, HCV Ab MELCHOR w/Rflx PCR Qn Negative, HIV Ag/Ab Combo Qual Negative 08/02/24 16:43: Lactate 1.2 I & O for Last 24 hours: Intake & Output 07/31/24 08/01/24 08/02/24 08/03/24 11:59 11:59 11:59 11:59 Weight 200 lb Constitutional Constitutional: no acute distress *Routine HEENT Exam Head: Present normocephalic Eye: Present EOMI and PERRL ENT: Present mucous membranes moist *Routine Neck Exam Neck: Present supple; Absent lymphadenopathy *Routine Respiratory Exam Respiratory: Present CTA bilaterally *Routine Cardiovascular Exam Cardiovascular: Present RRR *Routine Abdominal Exam Abdominal: Present soft and tenderness Comments: Diffuse mild tenderness. However in the right lower quadrant she has voluntary guarding. *Routine Rectal Exam Rectal:: deferred *Routine Genitalia Exam Genitalia:: deferred *Routine Extremities Exam Extremities: Absent cyanosis, clubbing or edema *Routine Skin Exam Skin: Present warm; Absent rash *Routine Neurological Exam Neurological: Present alert and oriented X3 Results Results Lab Results Last 24 Hours:: Laboratory Results - last 24 hr 08/02/24 14:39: Urine Color Yellow, Urine Appearance Clear, Urine pH 7.0, Ur Specific [place] 1.020, Urine Protein Negative, Urine Glucose (UA) Negative, Urine Ketones Negative, Urine Blood Negative, Urine Nitrate Negative, Urine Bilirubin Negative, Urine Urobilinogen 0.2, Ur Leukocyte Esterase Negative, Urine RBC 3-5, Urine WBC Occasional, Ur Squamous Epith Cells 5-10, Urine Bacteria Trace 08/02/24 15:05: WBC 16.7 H, RBC 4.67, Hgb 15.4, Hct 44.9, MCV 96.1, MCH 33.0 H, MCHC 34.3, RDW 12.8, Plt Count 226, MPV 11.7 H, Neut % (Auto) 76.2, Lymph % (Auto) 14.6, [place] % (Auto) 7.7, Eos % (Auto) 0.1, Baso % (Auto) 0.6, Neut # (Auto) 12.7 H, Lymph # (Auto) 2.4, [place] # (Auto) 1.3 H, Eos # (Auto) 0.0, Baso # (Auto) 0.1, ESR 21, Sodium 136, Potassium 3.9, Chloride 104, Carbon Dioxide 23, Anion Gap 12.9, BUN 15, Creatinine 0.90, Estimated Creat Clear 96, Estimated GFR 64, Est GFR ( Amer) 78, Glucose 130 H, Calcium 9.9, Magnesium 1.8, Total Bilirubin 0.8, AST 52 H, ALT 60, Alkaline Phosphatase 132 H, Troponin I < 0.01, C-Reactive Protein 32.1 H, Total Protein 8.2, Albumin 4.9, Globulin 3.3 H, Albumin/Globulin Ratio 1.5, Lipase 91, HCV Ab MELCHOR w/Rflx PCR Qn Negative, HIV Ag/Ab Combo Qual Negative 08/02/24 16:43: Lactate 1.2 Assessment and Plan *Assessment and plan (1) Acute appendicitis: Status: Acute Category: Medical Code(s): K35.80 - Unspecified acute appendicitis Plan Plan for emergent appendectomy.
--- NOTE | 2024-08-02 17:53 | PC.NURSE ---
pt mary left unit with surgery staff and being transported to [facility] on stretcher
--- NOTE | 2024-08-02 18:21 | P.PNANES_ITS ---
[facility] Disclaimer: The information contained in this section may have been updated after the patient was seen, as this information can be updated by other users. Medical History Abscess Cataract Hx MRSA infection Hx of thyroid nodule Surgical History History of cholecystectomy Hx of blepharoplasty Hx of cataract surgery Hx of melanoma excision Family History Other Family history of diabetes mellitus type II Family history of myocardial infarction Social History (Updated 01/11/23 @ 11:46 by Himanshu Lopez CRNA) Smoking Status: Current every day smoker tobacco type: cigarettes alcohol intake: never substance use type: denies use current occupational status: employed Travel in the last 8 weeks?: None caffeine: No Have you lived/traveled outside US in past 30 days?: No Contact w/someone who lives/traveled outside US past 30 days?: No Exposure to someone with infectious disease in past 14 days?: No Do you have a fever (greater than 100.4 F or 38 C)?: No Have you tested positive for COVID-19?: No Exposed to someone with COVID-19 in past 14 days?: No Do you have a sore throat?: No Do you have a cough?: No Do you have any weakness?: No Do you have any diarrhea?: No Are you experiencing any unusual bleeding?: No Do you have any muscle aches/pain?: No Do you have any abdominal pain?: No Are you experiencing loss of taste or smell?: No [facility] Anesthesia Checklist Patient Identification Patient Identification: Arm Band and Verbal (Name & ) Structural Data Admitted From: Emergency Dept Planned Operative Procedure/s: lap appy Consent for Planned Operative Procedure(s) Verified: Yes Verified Documents: Surgical Consent and History and Physical NPO Status Verified Time NPO: 08:00 Additional verifications Patient : No Anesthesia Reactions: No Airway Assessment Mallampati Score:: Class II Dentition: Good Dentition Neurological Assessment Level of Consciousness: Awake, Alert and Appropriate Hx Seizures: No Anesthesia Plan Anesthesia Risk discussed: Yes Anesthesia Plan: Verified ASA Class: II Anesthesia Type: General
--- NOTE | 2024-08-02 19:10 | PC.NURSE ---
1659 advised by ER staff to page surgery team for lap possible open appy for pt 1700 Jolly returned call 1701 Etta returned call 1704 Michell returned call
--- NOTE | 2024-08-02 19:38 | SUR.OPER ---
consent was updated to include bowel resection. patients family member was updated and signed consent with witness.
--- NOTE | 2024-08-02 21:58 | P.OP_ITS ---
Date of procedure: 08/02/24 Pre-op Diagnosis:: Acute appendicitis Post-op Diagnosis:: Acute necrotizing appendicitis with possible cecal mass . Procedure performed:: Diagnostic laparoscopy Ileal cecal resection with ileocolic anastomosis . Surgeon:: Zeyad Oliveira MD . Anesthesia: GETA Estimated blood loss (mL): 50 Clinical Note:: Patient is a 58-year-old female with history of hypertension, diabetes, melanoma. She states that about a week ago she had symptoms of abdominal pain. This eased somewhat but never completely resolved. In the evening of 08/01/2024 she had acute severe recurrence of pain. She actually describes it as diffuse. It was eased somewhat with sitting in a warm tub. No other associated symptoms. She was evaluated in the emergency department found to have a leukocytosis of 16,700. She had CT scan which revealed findings of acute appendicitis with associated thickening of the cecal tip. Distended small bowel loops noted suggest ileus associated with the appendicitis. She was seen as a surgical consultation urgently in the emergency department. She was found to have diffuse abdominal tenderness with focal peritoneal findings in the right lower quadrant. Plan was made for appendectomy. . Operative findings:: Patient had severely inflamed with fibrinous purulent somewhat necrotic appendix densely adherent to the cecum and pelvic sidewall. There appeared to be possible mass involving the cecum at the base of the appendix. The base of the appendix was necrotic. Also of note, she had evidence of possible early cirrhosis of the liver with hepatomegaly. . Operative note:: Consent was obtained patient was taken the operating room. She was given preoperative intravenous antibiotics. In the operating room she was placed in a supine position. General anesthesia was induced via endotracheal tube. Tinsley catheter was placed. Abdomen was prepped and draped in the standard surgical fashion. Subumbilical skin incision was made in her previous laparoscopy scar. Intraperitoneal contents were visualized. She had 5 mm trocars placed on the right upper abdomen and in the lower abdomen. Laparoscopic surveillance was carried out. She had evidence of hepatomegaly with some possible early liver cirrhosis characterized by some nodularity. There was a single omental adhesion at her umbilical trocar site which was taken down laparoscopically. Laparoscopic surveillance was carried out and ultimately appendix was identified somewhat retrocecal location densely adherent posterior laterally to the cecum and somewhat to the pelvic sidewall. Effort was made to deliver the appendix anteriorly. There was evidence of some necrosis and some focal purulence. Appendix was unable to be delivered due to its dense adherence to the cecum. Is also noted to be possible neoplastic process in the cecum at the appendiceal base. At this time attention was turned to open procedure. A right lower quadrant Samir-Alex type transverse incision was made at McBurney's point. Dissection was carried down through subcutaneous tissues. Nisha's fascia was incised. Muscles were opened along the length of their fibers and a muscle- splitting type technique including external bleak, internal oblique, and transversalis fascia. Peritoneum was incised and peritoneal cavity was entered. Ultimately this required some extension of the incisions for evaluation. With difficulty due to the dense adherence of the appendix it was ultimately delivered through the wound after retractors were placed. Inspection was carried out and there was necrosis down to the base of the appendix. Also there was concern for possible neoplastic process in the cecum at the base of the appendix near its orifice. Decision was then made to perform ileocecal rese ction. Terminal ileum was divided just proximal to the ileocecal valve with a endoscopic ASHLEY linear cutting stapling device. The colon was divided distal to the ileocecal valve in the ascending colon with a ASHLEY linear cutting stapling device. The ileocecal mesentery was divided with the Enseal device. Specimen was placed on the back table. In order to deliver the ascending colon through the wound to allow for staple anastomosis the peritoneal attachments along the white line of Toldt were divided. However this did not allow for adequate mobility of the ascending colon. Therefore the fascia was temporarily closed with a running Vicryl locking suture and CO2 pneumoperitoneum was reestablished. The ascending colon was mobilized up to the hepatic flexure using aamir ultrasonic harmonic susana. CO2 pneumoperitoneum was then evacuated once again and attention was turned to open portion of the procedure. Temporary fascial suture for establishment of pneumoperitoneum was removed. The terminal ileum and ascending colon were then able to be delivered through the wound. A stapled [id number] anastomosis was created with a ASHLEY 75 type stapling device. Common enterotomy was closed with a TX 60B stapling device. 3-0 Surgilon seromuscular sutures were placed at the staple line angle and the confluence of staple lines. Several seromuscular sutures in an interrupted fashion were placed along the staple line. Mesenteric defect was closed with a running 2-0 Vicryl. Anastomosis appeared patent. Bowel was returned to the peritoneal cavity. Peritoneum was closed with a running 0 Vicryl. Fascial layers were closed using running 0 PDS including transversalis, internal oblique, and external bleak fascial layers with irrigation performed between each layer. Nisha's fascia wa s closed with a running 2-0 Vicryl. Skin was closed with skin carol. At this time attention was turned once again to laparoscopy. Right lower quadrant right colic gutter was irrigated and aspirated till clear. Irrigation was performed over the dome of the liver as well until clear. With manipulation of the anastomosis there was some minor oozing temporarily from the closure of the mesenteric defect and pressure was held for couple of minutes which resulted in good hemostasis but a small piece of Surgicel was placed for assurance of hemostasis. There appeared to be good hemostasis. Trocars were then removed as CO2 pneumoperitoneum was evacuated. Fascia at the umbilicus was closed with 0 Vicryl suture. Skin incisions were closed with carol. Clean dry sterile dressings were applied. . Condition: stable Disposition: PACU Complications:: None immediately apparent
--- NOTE | 2024-08-02 22:14 | P.PNANES_ITS ---
[facility] Anesthesia Record Part I Anesthesia Record I Intake, IV Amount: 1,500 Hydration: Adequate Estimated blood loss (mL): 0 Urine output (mL): 500 Blood Pressure: 154/85 SaO2: 93 Pulse Rate: 93 Airway Patency: Patent Respiratory Rate: 18 Temperature: 97.3 F Patient is:: Awake and Stable Stable to PACU at:: 22:11
--- NOTE | 2024-08-02 22:47 | PC.NURSE ---
Patient arrived to floor via stretcher from surgery at 22:30.
[2024-08-02 22:58] LABS: Appearance,Urine/Cath CLEAR (Clear); Bilirubin,Cath Negative (Negative); Blood, Urine/Cath Negative (Negative); Color,Urine/Cath YELLOW (Yellow); Glucose,Urine/Cath (UA) Negative (Negative); Ketones,Urine/Cath Negative (Negative); Leukocyte Esterase,Cath Negative (Negative); Microscopic,Cath URINE MICROSCOPIC (MICROSCOPIC); Nitrate,Cath Negative (Negative); PH,Urine/Cath 6.5 (5.0-8.5); Protein,Urine/Cath Negative (Negative); Urobilinogen,Cath 0.2 EU/dl (0.2)
--- NOTE | 2024-08-02 23:13 | P.HP_ITS ---
History of Present Illness *Admission Date: 08/02/24 *Reason for visit:: Abdominal Pain *History of present illness: Patient is a 68-year-old female with history of hypertension, diabetes, melanoma. She states that about a week ago she had symptoms of abdominal pain. This eased somewhat but never completely resolved. In the evening of 08/01/2024 she had acute severe recurrence of pain. She actually describes it as diffuse. It was eased somewhat with sitting in a warm tub. No other associated symptoms. She was evaluated in the emergency department found to have a leukocytosis of 16,700. She had CT scan which revealed findings of acute appendicitis with associated thickening of the cecal tip. Distended small bowel loops noted suggest ileus associated with the appendicitis. [facility] Disclaimer: The information contained in this section may have been updated after the patient was seen, as this information can be updated by other users. Medical History (Updated 08/02/24 @ 22:55 by TOMÁS Mcdowell) Hypertension Hx of thyroid nodule Hx MRSA infection Abscess Cataract Surgical History Hx of melanoma excision Hx of cataract surgery Hx of blepharoplasty History of cholecystectomy Family History Other Family history of diabetes mellitus type II Family history of myocardial infarction Social History (Updated 08/02/24 @ 22:56 by TOMÁS Mcdowell) Smoking Status: Current every day smoker tobacco type: cigarettes alcohol intake: never substance use type: denies use current occupational status: employed Travel in the last 8 weeks?: None caffeine: No Have you lived/traveled outside US in past 30 days?: No Contact w/someone who lives/traveled outside US past 30 days?: No Exposure to someone with infectious disease in past 14 days?: No Do you have a fever (greater than 100.4 F or 38 C)?: No Have you tested positive for COVID-19?: No Exposed to someone with COVID-19 in past 14 days?: No Do you have a sore throat?: No Do you have a cough?: No Do you have any weakness?: No Are you experiencing any nausea/vomitting?: No Do you have any diarrhea?: No Are you experiencing any unusual bleeding?: No Do you have any muscle aches/pain?: No Do you have any abdominal pain?: No Are you experiencing loss of taste or smell?: No Other Medical History Have you received the Flu Vaccine for this season: No Have you received the Pneumonia Vaccine: No Review of Systems Review of Systems Review of systems:: pertinent systems reviewed and negative unless documented below *Gastrointestinal Gastrointestinal: Reports abdominal pain, Reports cramping, Reports heartburn, Reports nausea and Reports vomiting Meds Home Medications and Allergies Home Medications ?Medication ?Instructions ?Recorded ?Confirmed ?Type fluoxetine 40 mg capsule (Prozac) 40 mg PO DAILY Anxiety 11/13/17 08/02/24 History bisoprolol 2.5 1 tab PO DAILY htn 12/28/22 08/02/24 History mg-hydrochlorothiazide 6.25 mg tablet lisinopril 5 mg tablet 10 mg PO DAILY htn 12/28/22 08/02/24 History New Prescriptions to Start Prescriptions: Allergies Allergy/AdvReac Type Severity Reaction Status Date / Time No Known Allergies Allergy Verified 01/11/23 11:32 Exam Data for Last 24 hours Vital signs and Labs for Last 24 Hours: Temp Pulse Resp BP Pulse Ox O2 Del Method 97.3 F L 91 H 16 146/75 H 93 L Room Air 08/02/24 22:31 08/02/24 22:31 08/02/24 22:31 08/02/24 22:31 08/02/24 22:31 08/02/24 22:31 Laboratory Results - last 24 hr 08/02/24 14:39: Urine Color Yellow, Urine Appearance Clear, Urine pH 7.0, Ur Specific [place] 1.020, Urine Protein Negative, Urine Glucose (UA) Negative, Urine Ketones Negative, Urine Blood Negative, Urine Nitrate Negative, Urine Bilirubin Negative, Urine Urobilinogen 0.2, Ur Leukocyte Esterase Negative, Urine RBC 3-5, Urine WBC Occasional, Ur Squamous Epith Cells 5-10, Urine Bacteria Trace 08/02/24 15:05: WBC 16.7 H, RBC 4.67, Hgb 15.4, Hct 44.9, MCV 96.1, MCH 33.0 H, MCHC 34.3, RDW 12.8, Plt Count 226, MPV 11.7 H, Neut % (Auto) 76.2, Lymph % (Auto) 14.6, [place] % (Auto) 7.7, Eos % (Auto) 0.1, Baso % (Auto) 0.6, Neut # (Auto) 12.7 H, Lymph # (Auto) 2.4, [place] # (Auto) 1.3 H, Eos # (Auto) 0.0, Baso # (Auto) 0.1, ESR 21, Sodium 136, Potassium 3.9, Chloride 104, Carbon Dioxide 23, Anion Gap 12.9, BUN 15, Creatinine 0.90, Estimated Creat Clear 96, Estimated GFR 64, Est GFR ( Amer) 78, Glucose 130 H, Calcium 9.9, Magnesium 1.8, Total Bilirubin 0.8, AST 52 H, ALT 60, Alkaline Phosphatase 132 H, Troponin I < 0.01, C-Reactive Protein 32.1 H, Total Protein 8.2, Albumin 4.9, Globulin 3.3 H, Albumin/Globulin Ratio 1.5, Lipase 91, HCV Ab MELCHOR w/Rflx PCR Qn Negative, HIV Ag/Ab Combo Qual Negative 08/02/24 16:00: Urine Color Yellow, Urine Appearance Clear, Urine pH 6.5, Ur Specific [place] 1.010, Urine Protein Negative, Urine Glucose (UA) Negative, Urine Ketones Negative, Urine Blood Negative, Urine Nitrate Negative, Urine Bilirubin Negative, Urine Urobilinogen 0.2, Ur Leukocyte Esterase Negative 08/02/24 16:43: Lactate 1.2 I & O for Last 24 hours: Intake & Output 07/30/24 07/31/24 08/01/24 08/02/24 23:59 23:59 23:59 23:59 Intake Total 1500 / 1500 Balance 1500 / 1500 Weight 90.401 kg Constitutional Constitutional: no acute distress and average body habitus *Routine HEENT Exam Head: Present normocephalic and atraumatic Eye: Present EOMI ENT: Present mucous membranes moist Comments: NGT in R Nare *Routine Neck Exam Neck: Present supple *Routine Respiratory Exam Respiratory: Present normal respiratory effort, able to speak in complete sentences and symmetric chest movement *Routine Cardiovascular Exam Cardiovascular: Present RRR *Routine Abdominal Exam Abdominal: Present soft and tenderness Comments: Post Op dressings x [address], C/D/I. *Routine Rectal Exam Rectal:: deferred *Routine Genitalia Exam Genitalia:: deferred *Routine Extremities Exam Extremities: Present pulses intact and normal capillary refill *Routine Skin Exam Skin: Present intact, dry and warm *Routine Neurological Exam Neurological: Present alert and oriented X3 Assessment and Plan *Assessment and plan (1) Acute appendicitis: Status: Acute Category: Medical Code(s): K35.80 - Unspecified acute appendicitis Plan Acute Appendicitis S/P Lap Appy NGT in R Nare to LIS. Continue IVF. Continue IV ABX. Parenteral pain medication. Parenteral antiemetics. Care managed by Surgery. HTN Continue home meds when appropriate. VS and O2 monitoring. Anxiety Continue home meds when appropriate - Fluoxetine. GERD Parenteral PPI therapy ordered.
--- NOTE | 2024-08-02 23:24 | P.CONS_ITS ---
History of Present Illness *Admission Date: 08/02/24 *Reason for visit:: Acute Appendicitis *History of present illness: 58-year-old female patient who is admitted to the hospital with acute appendicitis following 24 hours of worsening abdominal pain/cramping associated with nausea and vomiting. She reports a similar episode that occurred 1 week ago and resolved without intervention, however today the pain became increasingly worse prompting her to come to the ER. She is seen at bedside post-op with a lap appy. She denies any pain at this time, she is having some nausea. [facility] Disclaimer: The information contained in this section may have been updated after the patient was seen, as this information can be updated by other users. Medical History (Updated 08/03/24 @ 04:36 by Ezequiel Lyn APRN) Hypertension Hx of thyroid nodule Hx MRSA infection Abscess Cataract Surgical History Hx of melanoma excision Hx of cataract surgery Hx of blepharoplasty History of cholecystectomy Family History Other Family history of diabetes mellitus type II Family history of myocardial infarction Social History (Updated 08/02/24 @ 22:56 by Shana Pimentel RNA) Smoking Status: Current every day smoker tobacco type: cigarettes alcohol intake: never substance use type: denies use current occupational status: employed Travel in the last 8 weeks?: None caffeine: No Have you lived/traveled outside [place] in past 30 days?: No Contact w/someone who lives/traveled outside US past 30 days?: No Exposure to someone with infectious disease in past 14 days?: No Do you have a fever (greater than 100.4 F or 38 C)?: No Have you tested positive for COVID-19?: No Exposed to someone with COVID-19 in past 14 days?: No Do you have a sore throat?: No Do you have a cough?: No Do you have any weakness?: No Are you experiencing any nausea/vomitting?: No Do you have any diarrhea?: No Are you experiencing any unusual bleeding?: No Do you have any muscle aches/pain?: No Do you have any abdominal pain?: No Are you experiencing loss of taste or smell?: No Review of Systems Review of Systems Review of systems:: pertinent systems reviewed and negative unless documented below *Gastrointestinal Gastrointestinal: Reports abdominal pain, Reports dyspepsia, Reports nausea and Reports vomiting Exam Data for Last 24 hours Vital signs and Labs for Last 24 Hours: Temp Pulse Resp BP Pulse Ox O2 Del Method 97.3 F L 91 H 16 146/75 H 93 L Room Air 08/02/24 22:31 08/02/24 22:31 08/02/24 22:31 08/02/24 22:31 08/02/24 22:31 08/02/24 22:31 Laboratory Results - last 24 hr 08/02/24 14:39: Urine Color Yellow, Urine Appearance Clear, Urine pH 7.0, Ur Specific [place] 1.020, Urine Protein Negative, Urine Glucose (UA) Negative, Urine Ketones Negative, Urine Blood Negative, Urine Nitrate Negative, Urine Bilirubin Negative, Urine Urobilinogen 0.2, Ur Leukocyte Esterase Negative, Urine RBC 3-5, Urine WBC Occasional, Ur Squamous Epith Cells 5-10, Urine Bacteria Trace 08/02/24 15:05: WBC 16.7 H, RBC 4.67, Hgb 15.4, Hct 44.9, MCV 96.1, MCH 33.0 H, MCHC 34.3, RDW 12.8, Plt Count 226, MPV 11.7 H, Neut % (Auto) 76.2, Lymph % (Auto) 14.6, [place] % (Auto) 7.7, Eos % (Auto) 0.1, Baso % (Auto) 0.6, Neut # (Auto) 12.7 H, Lymph # (Auto) 2.4, [place] # (Auto) 1.3 H, Eos # (Auto) 0.0, Baso # (Auto) 0.1, ESR 21, Sodium 136, Potassium 3.9, Chloride 104, Carbon Dioxide 23, Anion Gap 12.9, BUN 15, Creatinine 0.90, Estimated Creat Clear 96, Estimated GFR 64, Est GFR ( Amer) 78, Glucose 130 H, Calcium 9.9, Magnesium 1.8, Total Bilirubin 0.8, AST 52 H, ALT 60, Alkaline Phosphatase 132 H, Troponin I < 0.01, C-Reactive Protein 32.1 H, Total Protein 8.2, Albumin 4.9, Globulin 3.3 H, Albumin/Globulin Ratio 1.5, Lipase 91, HCV Ab MELCHOR w/Rflx PCR Qn Negative, HIV Ag/Ab Combo Qual Negative 08/02/24 16:00: Urine Color Yellow, Urine Appearance Clear, Urine pH 6.5, Ur Specific [place] 1.010, Urine Protein Negative, Urine Glucose (UA) Negative, Urine Ketones Negative, Urine Blood Negative, Urine Nitrate Negative, Urine Bilirubin Negative, Urine Urobilinogen 0.2, Ur Leukocyte Esterase Negative, Urine RBC None, Urine WBC None, Ur Squamous Epith Cells None, Urine Bacteria None 08/02/24 16:43: Lactate 1.2 I & O for Last 24 hours: Intake & Output 07/30/24 07/31/24 08/01/24 08/02/24 23:59 23:59 23:59 23:59 Intake Total 1500 / 1500 Balance 1500 / 1500 Weight 90.401 kg Constitutional Constitutional: no acute distress *Routine HEENT Exam Head: Present normocephalic and atraumatic Eye: Present EOMI ENT: Present mucous membranes moist Comments: NGT in R Nare. *Routine Neck Exam Neck: Present supple and full ROM *Routine Respiratory Exam Respiratory: Present normal respiratory effort, able to speak in complete sentences and symmetric chest movement *Routine Cardiovascular Exam Cardiovascular: Present RRR *Routine Abdominal Exam Abdominal: Present soft and tenderness Comments: Post Op Dressing sites x 3, C/D/I. *Routine Extremities Exam Extremities: Present pulses intact *Routine Skin Exam Skin: Present intact, dry and warm *Routine Neurological Exam Neurological: Present alert and oriented X3 Meds Home Medications and Allergies Home Medications ?Medication ?Instructions ?Recorded ?Confirmed ?Type fluoxetine 40 mg capsule (Prozac) 40 mg PO DAILY Anxiety 11/13/17 08/02/24 History bisoprolol 2.5 1 tab PO DAILY htn 12/28/22 08/02/24 History mg-hydrochlorothiazide 6.25 mg tablet lisinopril 5 mg tablet 10 mg PO DAILY htn 12/28/22 08/02/24 History New Prescriptions to Start Prescriptions: Allergies Allergy/AdvReac Type Severity Reaction Status Date / Time No Known Allergies Allergy Verified 01/11/23 11:32 Results Labs 08/02/24 15:05 08/02/24 15:05 Labs: Abnormal lab results 08/02/24 Range/Units 15:05 WBC 16.7 H (4.8-10.8) K/mm3 MCH 33.0 H (27.0-31.2) pg MPV 11.7 H (7.4-10.4) fl Neut # (Auto) 12.7 H (1.8-7.8) K/mm3 [place] # (Auto) 1.3 H (0.1-1.0) K/mm3 Glucose 130 H (74-100) mg/dl AST 52 H (14-36) U/L Alkaline Phosphatase 132 H (38-126) U/L C-Reactive Protein 32.1 H (0-4) mg/L Globulin 3.3 H (1.3-3.2) g/dL H & H /01/17 Range/Units 15:05 Hgb 15.4 (12.2-16.2) g/dL Hct 44.9 (37.0-47.0) % All other labs normal. Assessment and Plan *Assessment and plan (1) Acute appendicitis: Status: Acute Category: Medical Code(s): K35.80 - Unspecified acute appendicitis (2) Anxiety: Status: Acute Category: Medical Code(s): F41.9 - Anxiety disorder, unspecified (3) Hypertension: Status: Acute Category: Medical Code(s): I10 - Essential (primary) hypertension (4) GERD (gastroesophageal reflux disease): Status: Acute Category: Medical Code(s): K21.9 - Gastro-esophageal reflux disease without esophagitis Plan Acute Appendicitis S/P Lap Appy NGT in R Nare to LIS. Continue IVF. Continue IV ABX. Parenteral pain medication. Parenteral antiemetics. Care managed by Surgery. HTN Continue home meds when appropriate - Ziac/Lisinopril. VS and O2 monitoring. Anxiety Continue home meds when appropriate - Fluoxetine. GERD Parenteral PPI therapy ordered.
[2024-08-02] MEDS: LACTATED RINGERS 1000ML 1,000 ML 125 ML IV (23:53)
[2024-08-03] VITALS (10 sets, daily range): BP systolic 130–176; BP diastolic 64–92; PULSE 79–98; RESP 16–20; TEMP 36.6–37.3; O2SAT 93–96; BMI 30.2
[2024-08-03] MEDS: HYDROMORPHONE 2MG/ML SYRINGE 0.5 MG IV ×5 (01:15→21:03)
--- NOTE | 2024-08-03 03:32 | PC.NURSE ---
Pt AOx4, post lap appy. Sites c/d/i. NG tube connected to low wall suction per order with minimal output. Respirations even and unlabored. Bed is low, locked, and call light is in reach.
[2024-08-03] MEDS: PIPERACILLIN/TAZO 4.5 GM in 0.9 % SODIUM CHLORIDE 100 ML IV ×4 (04:06→21:04)
[2024-08-03 08:07] LABS: Basophils # 0.1 K/mm3 (0-0.2); Basophils % 0.4 % (0.1-2.0); Eosinophils % 0.3 % (0.1-12.0); Hematocrit 41.2 % (37.0-47.0); Immature Granulocytes # 0.17 10^3uL; Immature Granulocytes % 1.1 %; Lymphocytes # 1.7 K/mm3 (0.7-4.5); Lymphocytes % 10.7 % (10-50); Mean Corpuscular Hemoglobin 32.7 pg (27.0-31.2); Monocytes # 1.5 K/mm3 (0.1-1.0); Monocytes % 9.6 % (1.7-9.3); Neutrophils # 12.2 K/mm3 (1.8-7.8); Neutrophils % 77.9 % (37.0-80.0); Nucleated Red Blood Cells # 0 10^3/uL; Nucleated Red Blood Cells % 0 %; Platelet Count 201 K/mm3 (142-424); Red Blood Count 4.16 M/mm3 (4.20-5.40); Red Cell Distribution Width-SD 47.4 fL; White Blood Count 15.7 K/mm3 (4.8-10.8)
[2024-08-03 08:23] LABS: Hemoglobin 13.6 g/dL (12.2-16.2)
[2024-08-03 08:31] LABS: Chloride 106 mmol/L (98-107); Potassium 3.8 mmoL/L (3.5-5.1); Sodium 137 mmol/L (136-145)
[2024-08-03 08:34] LABS: Alanine Aminotransferase 42 U/L (12-78); Albumin/Globulin Ratio 1.4 (1.1-1.8); Alkaline Phosphatase 85 U/L (38-126); Anion Gap 11.8 mEq/L (5-15); Aspartate Amino Transferase 42 U/L (14-36); Bilirubin,Total 0.8 mg/dl (0.2-1.3); Blood Urea Nitrogen 11 mg/dl (7-17); Carbon Dioxide 23 mmol/L (22.0-30.0); Creatinine Clearance Estimated 96 mL/min (50-200); Estimated Glomerular Filt Rate 64 ml/min (>60); GFR (African American) 78 ML/MIN (>60); Globulin 2.9 g/dL (1.3-3.2); Total Protein,Serum 6.9 g/dl (6.3-8.2)
[2024-08-03 08:35] LABS: Calcium 8.9 mg/dl (8.4-10.2); Glucose 149 mg/dl (74-100)
[2024-08-03] MEDS: BISOPROLOL 5MG TABLET 2.5 MG PO (09:05)
[2024-08-03] MEDS: LISINOPRIL 5MG TABLET 10 MG PO (09:05)
[2024-08-03] MEDS: FLUOXETINE 20MG CAPSULE 40 MG PO (09:06)
--- NOTE | 2024-08-03 10:10 | EXP.SURG.PN ---
Subjective Narrative: Patient complains of soreness mostly at the right lower quadrant surgical site. No nausea. NG without any output. Exam Data for Last 24 hours Vital signs and Labs for Last 24 Hours: Temp Pulse Resp BP Pulse Ox O2 Del Method 99.2 F 96 H 20 159/79 H 94 L Room Air 08/03/24 08:00 08/03/24 08:00 08/03/24 08:00 08/03/24 08:00 08/03/24 08:00 08/03/24 08:13 Laboratory Results - last 24 hr 08/02/24 14:39: Urine Color Yellow, Urine Appearance Clear, Urine pH 7.0, Ur Specific [place] 1.020, Urine Protein Negative, Urine Glucose (UA) Negative, Urine Ketones Negative, Urine Blood Negative, Urine Nitrate Negative, Urine Bilirubin Negative, Urine Urobilinogen 0.2, Ur Leukocyte Esterase Negative, Urine RBC 3-5, Urine WBC Occasional, Ur Squamous Epith Cells 5-10, Urine Bacteria Trace 08/02/24 15:05: WBC 16.7 H, RBC 4.67, Hgb 15.4, Hct 44.9, MCV 96.1, MCH 33.0 H, MCHC 34.3, RDW 12.8, Plt Count 226, MPV 11.7 H, Neut % (Auto) 76.2, Lymph % (Auto) 14.6, [place] % (Auto) 7.7, Eos % (Auto) 0.1, Baso % (Auto) 0.6, Neut # (Auto) 12.7 H, Lymph # (Auto) 2.4, [place] # (Auto) 1.3 H, Eos # (Auto) 0.0, Baso # (Auto) 0.1, ESR 21, Sodium 136, Potassium 3.9, Chloride 104, Carbon Dioxide 23, Anion Gap 12.9, BUN 15, Creatinine 0.90, Estimated Creat Clear 96, Estimated GFR 64, Est GFR ( Amer) 78, Glucose 130 H, Calcium 9.9, Magnesium 1.8, Total Bilirubin 0.8, AST 52 H, ALT 60, Alkaline Phosphatase 132 H, Troponin I < 0.01, C-Reactive Protein 32.1 H, Total Protein 8.2, Albumin 4.9, Globulin 3.3 H, Albumin/Globulin Ratio 1.5, Lipase 91, HCV Ab MELCHOR w/Rflx PCR Qn Negative, HIV Ag/Ab Combo Qual Negative 08/02/24 16:00: Urine Color Yellow, Urine Appearance Clear, Urine pH 6.5, Ur Specific [place] 1.010, Urine Protein Negative, Urine Glucose (UA) Negative, Urine Ketones Negative, Urine Blood Negative, Urine Nitrate Negative, Urine Bilirubin Negative, Urine Urobilinogen 0.2, Ur Leukocyte Esterase Negative, Urine RBC None, Urine WBC None, Ur Squamous Epith Cells None, Urine Bacteria None 08/02/24 16:43: Lactate 1.2 08/03/24 06:45: WBC 15.7 H, RBC 4.16 L, Hgb 13.6 D, Hct 41.2, MCV 99.0, MCH 32.7 H, MCHC 33.0, RDW 13.0, Plt Count 201, MPV 12.0 H, Neut % (Auto) 77.9, Lymph % (Auto) 10.7, [place] % (Auto) 9.6 H, Eos % (Auto) 0.3, Baso % (Auto) 0.4, Neut # (Auto) 12.2 H, Lymph # (Auto) 1.7, [place] # (Auto) 1.5 H, Eos # (Auto) 0.0, Baso # (Auto) 0.1, Sodium 137, Potassium 3.8, Chloride 106, Carbon Dioxide 23, Anion Gap 11.8, BUN 11 D, Creatinine 0.90, Estimated Creat Clear 96, Estimated GFR 64, Est GFR ( Amer) 78, Glucose 149 H, Calcium 8.9, Total Bilirubin 0.8, AST 42 H, ALT 42 D, Alkaline Phosphatase 85, Total Protein 6.9, Albumin 4.0 D, Globulin 2.9, Albumin/Globulin Ratio 1.4 I & O for Last 24 hours: Intake & Output 07/31/24 08/01/24 08/02/24 08/03/24 11:59 11:59 11:59 11:59 Intake Total 1500 / 1500 Output Total 1350 / 1350 Balance 150 / 150 Weight 199 lb 4.8 oz *Routine Abdominal Exam Comments: Some surgical site tenderness. Dressings dry and intact. Progress Note: A&P Assessment and plan (1) Acute appendicitis: Status: Acute Assessment and plan: DC NG tube. Ice chips only. Continue Zosyn. DC [place]. (2) Anxiety: Status: Acute (3) Hypertension: Status: Acute (4) GERD (gastroesophageal reflux disease): Status: Acute
--- NOTE | 2024-08-03 14:45 | PC.NURSE ---
PT IS RESTING IN BED. ALERT AND ORIENTED X4. NG AND PATRICK REMOVED THIS MORNING. PT HAS VOIDED SINCE PATRICK WAS REMOVED. PT HAS AMBULATED TO THE BATHROOM AND AROUND THE ROOM. MEDICATED PER MAR FOR PAIN. PT STATES SHE FEELS PAIN MOST IN THE RLQ. DRESSINGS TO ABDOMEN C/D/I. ABDOMEN SOFT/TENDER WITH HYPOACTIVE BOWEL SOUNDS. LUNG SOUNDS CLEAR. WILL CONTINUE TO MONITOR.
[2024-08-03] MEDS: LACTATED RINGERS 1000ML 1,000 ML 75 ML IV (15:25)
--- NOTE | 2024-08-03 18:40 | P.PN_ITS ---
Subjective *Date: 08/03/24 *Time: 18:40 Interval history: Patient doing well, trying her best to ambulate but is often overexerting. Encouraged to ease into it. No flatus yet, ice chips for now. Exam Data for Last 24 hours Vital signs and Labs for Last 24 Hours: Temp Pulse Resp BP Pulse Ox O2 Del Method 98.8 F 84 20 141/74 H 93 L Room Air 08/03/24 16:00 08/03/24 16:00 08/03/24 16:08/03/24 16:08/03/24 16:08/03/24 18:24 Laboratory Results - last 24 hr 08/02/24 16:00: Urine Color Yellow, Urine Appearance Clear, Urine pH 6.5, Ur Specific [place] 1.010, Urine Protein Negative, Urine Glucose (UA) Negative, Urine Ketones Negative, Urine Blood Negative, Urine Nitrate Negative, Urine Bilirubin Negative, Urine Urobilinogen 0.2, Ur Leukocyte Esterase Negative, Urine RBC None, Urine WBC None, Ur Squamous Epith Cells None, Urine Bacteria None 08/03/24 06:45: WBC 15.7 H, RBC 4.16 L, Hgb 13.6 D, Hct 41.2, MCV 99.0, MCH 32.7 H, MCHC 33.0, RDW 13.0, Plt Count 201, MPV 12.0 H, Neut % (Auto) 77.9, Lymph % (Auto) 10.7, [place] % (Auto) 9.6 H, Eos % (Auto) 0.3, Baso % (Auto) 0.4, Neut # (Auto) 12.2 H, Lymph # (Auto) 1.7, [place] # (Auto) 1.5 H, Eos # (Auto) 0.0, Baso # (Auto) 0.1, Sodium 137, Potassium 3.8, Chloride 106, Carbon Dioxide 23, Anion Gap 11.8, BUN 11 D, Creatinine 0.90, Estimated Creat Clear 96, Estimated GFR 64, Est GFR ( Amer) 78, Glucose 149 H, Calcium 8.9, Total Bilirubin 0.8, AST 42 H, ALT 42 D, Alkaline Phosphatase 85, Total Protein 6.9, Albumin 4.0 D, Globulin 2.9, Albumin/Globulin Ratio 1.4 I & O for Last 24 hours: Intake & Output 07/31/24 08/01/24 08/02/24 08/03/24 23:59 23:59 23:59 23:59 Intake Total 1500 / 1500 429 / 429 Output Total 1350 / 1350 Balance 1500 / 850 -921 / -921 Weight 90.401 kg 90.401 kg Constitutional Constitutional: no acute distress *Routine HEENT Exam Head: Present normocephalic Eye: Present EOMI and PERRL ENT: Present mucous membranes moist *Routine Neck Exam Neck: Present supple; Absent lymphadenopathy *Routine Respiratory Exam Respiratory: Present CTA bilaterally *Routine Cardiovascular Exam Cardiovascular: Present RRR *Routine Abdominal Exam Abdominal: Present soft and normoactive bowel sounds; Absent tenderness Comments: Some surgical site tenderness. Dressings dry and intact. *Routine Extremities Exam Extremities: Absent cyanosis, clubbing or edema *Routine Skin Exam Skin: Present warm; Absent rash *Routine Neurological Exam Neurological: Present alert and oriented X3 Assessment and Plan *Assessment and plan (1) Acute appendicitis: Status: Acute Category: Medical Code(s): K35.80 - Unspecified acute appendicitis (2) Anxiety: Status: Acute Category: Medical Code(s): F41.9 - Anxiety disorder, unspecified (3) Hypertension: Status: Acute Category: Medical Code(s): I10 - Essential (primary) hypertension (4) GERD (gastroesophageal reflux disease): Status: Acute Category: Medical Code(s): K21.9 - Gastro-esophageal reflux disease without esophagitis Plan Acute Appendicitis S/P Lap Appy NG tube removed by general surgery today Continue LR at 100 mL/h. Continue IV Zosyn. Parenteral pain medication. Parenteral antiemetics. No flatus at this time, ice and sips at this time per general surgery. Care managed by Surgery. HTN Continue home irbesartan 75 mg once diet can started. BP stable at this time Anxiety Continue home fluoxetine 40 mg once diet can be started. GERD IV famotidine 20 mg twice daily. Full code DVT prophylaxis: Lovenox 40 mg
[2024-08-03] MEDS: FAMOTIDINE 20MG/2ML VIAL 20 MG IV (20:18)
--- NOTE | 2024-08-03 20:25 | PC.NURSE ---
hypoactive bowel sounds - educated to ambulate. patient reports high pain with movement/ambulation - educated we can premedicate prior to ambulation. declines pain medication at this time. incision sites are c/d/i expect a pin dot of blood on the incision site below the umbilicus.
[2024-08-04] VITALS (9 sets, daily range): BP systolic 146–180; BP diastolic 75–92; PULSE 77–98; RESP 16–23; TEMP 36.3–37.4; O2SAT 92–98
[2024-08-04] MEDS: HYDROMORPHONE 2MG/ML SYRINGE 0.5 MG IV ×6 (00:57→20:29)
[2024-08-04] MEDS: LACTATED RINGERS 1000ML 1,000 ML 100 ML IV ×3 (03:06→20:33)
[2024-08-04] MEDS: PIPERACILLIN/TAZO 4.5 GM in 0.9 % SODIUM CHLORIDE 100 ML IV ×4 (03:06→22:37)
[2024-08-04 06:34] LABS: Basophils # 0.1 K/mm3 (0-0.2); Basophils % 0.6 % (0.1-2.0); Hematocrit 40.2 % (37.0-47.0); Hemoglobin 13.1 g/dL (12.2-16.2); Immature Granulocytes # 0.19 10^3uL; Immature Granulocytes % 1.2 %; Lymphocytes # 2.3 K/mm3 (0.7-4.5); Mean Corpuscular HGB Conc 32.6 g/dL (31.8-35.4); Mean Corpuscular Hemoglobin 33.2 pg (27.0-31.2); Mean Platelet Volume 11.8 fl (7.4-10.4); Monocytes # 1.2 K/mm3 (0.1-1.0); Monocytes % 7.8 % (1.7-9.3); Neutrophils # 11.6 K/mm3 (1.8-7.8); Neutrophils % 75.4 % (37.0-80.0); Nucleated Red Blood Cells # 0 10^3/uL; Nucleated Red Blood Cells % 0 %; Platelet Count 196 K/mm3 (142-424); Red Blood Count 3.94 M/mm3 (4.20-5.40); Red Cell Distribution Width 13.4 % (11.5-17.5); Red Cell Distribution Width-SD 51.2 fL; White Blood Count 15.4 K/mm3 (4.8-10.8)
[2024-08-04 07:04] LABS: Alanine Aminotransferase 28 U/L (12-78); Albumin Level 3.8 g/dl (3.5-5.0); Albumin/Globulin Ratio 1.3 (1.1-1.8); Alkaline Phosphatase 85 U/L (38-126); Anion Gap 5.9 mEq/L (5-15); Aspartate Amino Transferase 36 U/L (14-36); Blood Urea Nitrogen 13 mg/dl (7-17); Calcium 8.9 mg/dl (8.4-10.2); Carbon Dioxide 26 mmol/L (22.0-30.0); Chloride 107 mmol/L (98-107); Creatinine Clearance Estimated 86 mL/min (50-200); Estimated Glomerular Filt Rate 57 ml/min (>60); GFR (African American) 69 ML/MIN (>60); Globulin 2.9 g/dL (1.3-3.2); Glucose 136 mg/dl (74-100); Magnesium 2.3 mg/dl (1.6-2.3); Potassium 3.9 mmoL/L (3.5-5.1); Sodium 135 mmol/L (136-145); Total Protein,Serum 6.7 g/dl (6.3-8.2)
[2024-08-04] MEDS: IRBESARTAN 75MG TABLET 75 MG PO (07:35)
[2024-08-04] MEDS: FLUOXETINE 20MG CAPSULE 40 MG PO (07:36)
[2024-08-04] MEDS: ENOXAPARIN 40MG/0.4ML SYRINGE 40 MG SUBCUT (07:37)
[2024-08-04] MEDS: BISOPROLOL 5MG TABLET 2.5 MG PO (07:37)
[2024-08-04] MEDS: FAMOTIDINE 20MG/2ML VIAL 20 MG IV ×2 (07:37→20:34)
--- NOTE | 2024-08-04 08:32 | P.PN_ITS ---
Subjective Narrative: Patient has some pain. She states that she has developed a cough and when she coughs she has pain. She has belching. Not passing any gas. White blood cell count 15,400, stable. Exam Data for Last 24 hours Vital signs and Labs for Last 24 Hours: Temp Pulse Resp BP Pulse Ox O2 Del Method 98.6 F 96 H 22 180/87 H 92 L Room Air 08/04/24 07:34 08/04/24 07:34 08/04/24 07:34 08/04/24 07:34 08/04/24 07:34 08/04/24 07:34 Laboratory Results - last 24 hr 08/03/24 06:45: Sodium 137, Potassium 3.8, Chloride 106, Carbon Dioxide 23, Anion Gap 11.8, BUN 11 D, Creatinine 0.90, Estimated Creat Clear 96, Estimated GFR 64, Est GFR ( Amer) 78, Glucose 149 H, Calcium 8.9, Total Bilirubin 0.8, AST 42 H, ALT 42 D, Alkaline Phosphatase 85, Total Protein 6.9, Albumin 4.0 D, Globulin 2.9, Albumin/Globulin Ratio 1.4 08/04/24 05:45: WBC 15.4 H, RBC 3.94 L, Hgb 13.1, Hct 40.2, MCV 102.0 H, MCH 33.2 H, MCHC 32.6, RDW 13.4, Plt Count 196, MPV 11.8 H, Neut % (Auto) 75.4, Lymph % (Auto) 15.0, [place] % (Auto) 7.8, Eos % (Auto) 0.0 L, Baso % (Auto) 0.6, Neut # (Auto) 11.6 H, Lymph # (Auto) 2.3, [place] # (Auto) 1.2 H, Eos # (Auto) 0.0, Baso # (Auto) 0.1, Sodium 135 L, Potassium 3.9, Chloride 107, Carbon Dioxide 26, Anion Gap 5.9, BUN 13, Creatinine 1.00, Estimated Creat Clear 86, Estimated GFR 57 L, Est GFR ( Amer) 69, Glucose 136 H, Calcium 8.9, Magnesium 2.3 D, Total Bilirubin 1.0, AST 36, ALT 28 D, Alkaline Phosphatase 85, Total Protein 6.7, Albumin 3.8, Globulin 2.9, Albumin/Globulin Ratio 1.3 I & O for Last 24 hours: Intake & Output 08/01/24 08/02/24 08/03/24 08/04/24 11:59 11:59 11:59 11:59 Intake Total 1500 / 1500 1600 / 1600 Output Total 1350 / 1350 0 / 0 Balance 150 / 150 1600 / 1600 Weight 199 lb 4.8 oz 198 lb 3.2 oz *Routine Abdominal Exam Comments: Slightly distended. Tenderness right lower quadrant. Dressings dry Progress Note: A&P Assessment and plan (1) Acute appendicitis: Status: Acute Assessment and plan: Continue n.p.o. except ice chips. Close monitoring. Continue antibiotics. (2) Anxiety: Status: Acute (3) Hypertension: Status: Acute (4) GERD (gastroesophageal reflux disease): Status: Acute
[2024-08-04] MEDS: ONDANSETRON 4MG/2ML VIAL 4 MG IV ×2 (09:28→18:31)
[2024-08-04] MEDS: HYDROCODONE/APAP 5/325 MG TABLET 1 TAB PO ×2 (11:02→16:58)
[2024-08-04] MEDS: IPRATROPIUM/ALBUTEROL 3 ML NEB IH ×2 (12:25→18:55)
[2024-08-04] MEDS: SIMETHICONE 80MG CHEWABLE TABLET 160 MG PO ×2 (13:31→20:32)
[2024-08-04] MEDS: PROMETHAZINE HCL 25MG/ML 1ML VIAL 25 MG IV ×2 (13:32→20:30)
[2024-08-04] MEDS: SODIUM CHLORIDE 0.9% 25ML BAG 25 ML IV ×2 (13:33→20:30)
--- NOTE | 2024-08-04 15:39 | PC.NURSE ---
VS stable and patient remained on room air. patient able to pass gas, no bowel movements yet. Patient burping frequently, simethicone and phenergan given for gas and nausea and dilaudid given for pain. Relief per patient noted. Lung sounds clear. Patient able to ambulate multiple times in room.
--- NOTE | 2024-08-04 16:12 | P.PNANES_ITS ---
[facility] Anesthesia Record Part II Anesthesia Record Part II Discharge Time: 22:31 Destination: Medical Surgical Department PACU nurse assessment reviewed?: Yes Patient Condition:: Good Anesthesia Complications:: None Swallowing reflex intact?: Yes Airway Patency: Patent Cyanosis?: No Blood Pressure: 146/75 SaO2: 93 Respiratory Rate: 16 Pulse Rate: 91 Temperature: 97.3 F Mental Status: Alert & Oriented Pain level:: 0 Nausea and/or vomitting:: None Intake, IV Amount: 0 Hydration: Adequate
[2024-08-04] MEDS: SODIUM CHLORIDE 0.9% 10ML VIAL 8 ML IV (20:34)
--- NOTE | 2024-08-04 23:34 | EXP.PN ---
Subjective *Date: 08/05/24 *Time: 00:06 Interval history: Patient is having abdominal pain with ambulation, somewhat overexerting herself. Started simethicone and hydrocodone, continue Dilaudid Exam Data for Last 24 hours Vital signs and Labs for Last 24 Hours: Temp Pulse Resp BP Pulse Ox O2 Del Method 98.9 F 90 16 171/87 H 97 Room Air 08/04/24 20:00 08/04/24 20:00 08/04/24 20:00 08/04/24 20:00 08/04/24 20:00 08/04/24 20:00 Laboratory Results - last 24 hr 08/04/24 05:45: WBC 15.4 H, RBC 3.94 L, Hgb 13.1, Hct 40.2, MCV 102.0 H, MCH 33.2 H, MCHC 32.6, RDW 13.4, Plt Count 196, MPV 11.8 H, Neut % (Auto) 75.4, Lymph % (Auto) 15.0, [place] % (Auto) 7.8, Eos % (Auto) 0.0 L, Baso % (Auto) 0.6, Neut # (Auto) 11.6 H, Lymph # (Auto) 2.3, [place] # (Auto) 1.2 H, Eos # (Auto) 0.0, Baso # (Auto) 0.1, Sodium 135 L, Potassium 3.9, Chloride 107, Carbon Dioxide 26, Anion Gap 5.9, BUN 13, Creatinine 1.00, Estimated Creat Clear 86, Estimated GFR 57 L, Est GFR ( Amer) 69, Glucose 136 H, Calcium 8.9, Magnesium 2.3 D, Total Bilirubin 1.0, AST 36, ALT 28 D, Alkaline Phosphatase 85, Total Protein 6.7, Albumin 3.8, Globulin 2.9, Albumin/Globulin Ratio 1.3 I & O for Last 24 hours: Intake & Output 08/01/24 08/02/24 08/03/24 08/04/24 23:59 23:59 23:59 23:59 Intake Total 1500 / 1500 529 / 529 2131 Output Total 1350 / 1350 0 / 0 Balance 1500 / 850 -821 / -821 2131 Weight 90.401 kg 90.401 kg 89.902 kg *Routine Abdominal Exam Comments: Slightly distended. Tenderness right lower quadrant. Dressings dry Assessment and Plan *Assessment and plan (1) Acute appendicitis: Status: Acute Category: Medical Code(s): K35.80 - Unspecified acute appendicitis (2) Anxiety: Status: Acute Category: Medical Code(s): F41.9 - Anxiety disorder, unspecified (3) Hypertension: Status: Acute Category: Medical Code(s): I10 - Essential (primary) hypertension (4) GERD (gastroesophageal reflux disease): Status: Acute Category: Medical Code(s): K21.9 - Gastro-esophageal reflux disease without esophagitis Plan Acute Appendicitis S/P Lap Appy NG tube removed by general surgery Continue LR at 100 mL/h. Continue IV Zosyn. Parenteral pain medication. Parenteral antiemetics. Having flatus this afternoon, may be able to advance diet tomrorow. ice and sips at this time per general surgery. Care managed by Surgery. HTN Continue home irbesartan 75 mg once diet can started. BP stable at this time Anxiety Continue home fluoxetine 40 mg once diet can be started. GERD IV famotidine 20 mg twice daily. Full code DVT prophylaxis: Lovenox 40 mg
[2024-08-05] VITALS (7 sets, daily range): BP systolic 145–184; BP diastolic 74–83; PULSE 72–85; RESP 16–18; TEMP 36.7–37.2; O2SAT 95–97; BMI 30.5; BMI 30.4
[2024-08-05] MEDS: HYDROMORPHONE 2MG/ML SYRINGE 0.5 MG IV ×3 (01:41→10:20)
[2024-08-05] MEDS: SIMETHICONE 80MG CHEWABLE TABLET 160 MG PO ×4 (01:41→20:25)
--- NOTE | 2024-08-05 03:43 | PC.NURSE ---
Pt. is alert and orientated x 4. Pt. has a LAP appendectomy partially open. Pt. was up ambulating in the room. Pt. c/o pain to RLQ and pain to stomache. states that she is belching a lot. Pt. having intermittent nausea. Pt. medicated for pain and nausea per MAR. Pt. given simethicone with some relief of belching. And. soft, tender to touch. BS hypoactive. Pt. states shat she passed gas on days but none tonight. Pt. sleeping in between pain meds. Persoonal items and call zamora in reach.
[2024-08-05] MEDS: PIPERACILLIN/TAZO 4.5 GM in 0.9 % SODIUM CHLORIDE 100 ML IV ×4 (04:15→22:15)
[2024-08-05] MEDS: LACTATED RINGERS 1000ML 1,000 ML 100 ML IV (04:55)
[2024-08-05] MEDS: ONDANSETRON 4MG/2ML VIAL 4 MG IV (05:12)
--- NOTE | 2024-08-05 05:38 | PC.NURSE ---
Pt. remain NPO except ice chips.
[2024-08-05] MEDS: IPRATROPIUM/ALBUTEROL 3 ML NEB IH ×3 (05:56→23:13)
[2024-08-05 06:33] LABS: Basophils # 0.1 K/mm3 (0-0.2); Basophils % 0.6 % (0.1-2.0); Eosinophils % 0.1 % (0.1-12.0); Hematocrit 40.2 % (37.0-47.0); Hemoglobin 12.9 g/dL (12.2-16.2); Immature Granulocytes # 0.19 10^3uL; Immature Granulocytes % 1.3 %; Lymphocytes # 3.6 K/mm3 (0.7-4.5); Lymphocytes % 25.2 % (10-50); Mean Corpuscular HGB Conc 32.1 g/dL (31.8-35.4); Mean Corpuscular Hemoglobin 32.9 pg (27.0-31.2); Mean Corpuscular Volume 102.6 fl (81-99); Mean Platelet Volume 11.6 fl (7.4-10.4); Monocytes % 6.8 % (1.7-9.3); Neutrophils # 9.5 K/mm3 (1.8-7.8); Nucleated Red Blood Cells # 0 10^3/uL; Nucleated Red Blood Cells % 0 %; Platelet Count 197 K/mm3 (142-424); Red Blood Count 3.92 M/mm3 (4.20-5.40); Red Cell Distribution Width 13.2 % (11.5-17.5); White Blood Count 14.3 K/mm3 (4.8-10.8)
[2024-08-05 06:56] LABS: Alanine Aminotransferase 25 U/L (12-78); Albumin Level 3.8 g/dl (3.5-5.0); Albumin/Globulin Ratio 1.2 (1.1-1.8); Alkaline Phosphatase 99 U/L (38-126); Anion Gap 9.8 mEq/L (5-15); Aspartate Amino Transferase 52 U/L (14-36); Blood Urea Nitrogen 12 mg/dl (7-17); Carbon Dioxide 23 mmol/L (22.0-30.0); Chloride 108 mmol/L (98-107); Creatinine Clearance Estimated 109 mL/min (50-200); Estimated Glomerular Filt Rate 73 ml/min (>60); GFR (African American) 89 ML/MIN (>60); Globulin 3.2 g/dL (1.3-3.2); Glucose 105 mg/dl (74-100); Magnesium 2.6 mg/dl (1.6-2.3); Potassium 3.8 mmoL/L (3.5-5.1); Sodium 137 mmol/L (136-145)
--- NOTE | 2024-08-05 07:41 | P.PN_ITS ---
Subjective Narrative: Patient states that she does feel somewhat better regarding her abdominal pain. Minimal nausea. Has passed some minimal flatus. Exam Data for Last 24 hours Vital signs and Labs for Last 24 Hours: Temp Pulse Resp BP Pulse Ox O2 Del Method 98.6 F 72 16 160/77 H 97 Room Air 08/05/24 04:00 08/05/24 05:57 08/05/24 04:00 08/05/24 04:00 08/05/24 04:00 08/05/24 06:57 Laboratory Results - last 24 hr 08/05/24 05:36: WBC 14.3 H, RBC 3.92 L, Hgb 12.9, Hct 40.2, MCV 102.6 H, MCH 32.9 H, MCHC 32.1, RDW 13.2, Plt Count 197, MPV 11.6 H, Neut % (Auto) 66.0, Lymph % (Auto) 25.2, [place] % (Auto) 6.8, Eos % (Auto) 0.1, Baso % (Auto) 0.6, Neut # (Auto) 9.5 H, Lymph # (Auto) 3.6, [place] # (Auto) 1.0, Eos # (Auto) 0.0, Baso # (Auto) 0.1, Sodium 137, Potassium 3.8, Chloride 108 H, Carbon Dioxide 23, Anion Gap 9.8, BUN 12, Creatinine 0.80, Estimated Creat Clear 109, Estimated GFR 73, Est GFR ( Amer) 89 D, Glucose 105 H D, Calcium 9.0, Magnesium 2.6 H D, Total Bilirubin 1.0, AST 52 H D, ALT 25, Alkaline Phosphatase 99, Total Protein 7.0, Albumin 3.8, Globulin 3.2, Albumin/Globulin Ratio 1.2 I & O for Last 24 hours: Intake & Output 08/02/24 08/03/24 08/04/24 08/05/24 11:59 11:59 11:59 11:59 Intake Total 1500 / 1500 1600 / 1600 171 / 1711 Output Total 1350 / 1350 0 / 0 0 / 0 Balance 150 / 150 1600 / 1600 171 / 171 Weight 199 lb 4.8 oz 198 lb 3.2 oz 201 lb 8 oz *Routine Abdominal Exam Abdominal: Present distended Progress Note: A&P Assessment and plan (1) Acute appendicitis: Status: Acute (2) Anxiety: Status: Acute (3) Hypertension: Status: Acute (4) GERD (gastroesophageal reflux disease): Status: Acute Assessment and Plan Assessment and Plan for All Diagnoses:: Patient is postoperative day #3 after diagnostic laparoscopy for 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 Still with postoperative ileus. Encourage ambulation. Patient may chew gum. May have a few sips of liquids.
[2024-08-05] MEDS: BISOPROLOL 5MG TABLET 2.5 MG PO (08:01)
[2024-08-05] MEDS: ENOXAPARIN 40MG/0.4ML SYRINGE 40 MG SUBCUT (08:02)
[2024-08-05] MEDS: IRBESARTAN 75MG TABLET 75 MG PO ×2 (08:02→17:38)
[2024-08-05] MEDS: FLUOXETINE 20MG CAPSULE 40 MG PO (08:02)
[2024-08-05] MEDS: SODIUM CHLORIDE 0.9% 10ML VIAL 8 ML IV ×2 (08:03→20:35)
[2024-08-05] MEDS: FAMOTIDINE 20MG/2ML VIAL 20 MG IV ×2 (08:03→20:35)
--- NOTE | 2024-08-05 08:06 | PC.NURSE ---
TECH NOTE; NURSE NOTIFIED OF BLOOD PRESSURE FOR 0800 VITAL SIGNS Raimundo FAN, SRNA
--- NOTE | 2024-08-05 08:31 | EXP.PHA.PN ---
Subjective *Date: 08/05/24 *Time: 08:31 Medical Exam Vital signs and Labs for Last 24 Hours: Vital Signs Temp Pulse Pulse Resp BP Pulse Ox O2 Del Method 08/05/24 08:00 98.2 F 84 16 162/83 H 97 Room Air 08/05/24 06:57 Room Air 08/05/24 05:57 72 08/05/24 05:57 77 08/05/24 05:00 Room Air 08/05/24 04:00 98.6 F 82 16 160/77 H 97 Room Air 08/05/24 03:00 Room Air 08/05/24 01:00 Room Air 08/05/24 00:00 98.0 F 85 16 145/74 H 95 Room Air 08/04/24 23:00 Room Air 08/04/24 21:00 Room Air 08/04/24 20:00 Room Air 08/04/24 20:00 98.9 F 90 16 171/87 H 97 Room Air 08/04/24 18:55 91 H 08/04/24 18:55 94 H 08/04/24 18:33 Room Air 08/04/24 17:00 Room Air 08/04/24 16:23 16 08/04/24 16:00 98.8 F 92 H 23 150/76 H 98 Room Air 08/04/24 14:59 Room Air 08/04/24 13:10 Room Air 08/04/24 12:31 80 08/04/24 12:31 77 08/04/24 12:00 98.5 F 90 23 146/89 H 95 Room Air 08/04/24 11:00 Room Air 08/04/24 09:00 Room Air Intake and Output 08/04/24 08/05/24 08/05/24 23:59 07:59 15:59 Intake Total 1711 / 2782 Output Total 0 / 0 0 / 0 Balance 1711 / 2782 0 / 0 Intake: Intake, Total IV Amount 1711 / 2782 Lactated Ringers 1000ML 1,000 1611 / 2582 ml @ 100 mls/hr IV .Q10H [facility] Rx #:[id number] Piperacillin/Tazo 4.5 gm In 0.9 100 / 200 % Sodium Chloride 100 ml @ 200 mls/hr IV Q6H [facility] Rx#:[id number] Output: Output, Urine Amount 0 / 0 0 / 0 Other: Number of Unmeasured Voids 1 1 Weight 91.399 kg Patient Weight 08/05/24 23:59 Weight 91.399 kg Laboratory Results - last 24 hr 08/05/24 05:36: WBC 14.3 H, RBC 3.92 L, Hgb 12.9, Hct 40.2, MCV 102.6 H, MCH 32.9 H, MCHC 32.1, RDW 13.2, Plt Count 197, MPV 11.6 H, Neut % (Auto) 66.0, Lymph % (Auto) 25.2, [place] % (Auto) 6.8, Eos % (Auto) 0.1, Baso % (Auto) 0.6, Neut # (Auto) 9.5 H, Lymph # (Auto) 3.6, [place] # (Auto) 1.0, Eos # (Auto) 0.0, Baso # (Auto) 0.1, Sodium 137, Potassium 3.8, Chloride 108 H, Carbon Dioxide 23, Anion Gap 9.8, BUN 12, Creatinine 0.80, Estimated Creat Clear 109, Estimated GFR 73, Est GFR ( Amer) 89 D, Glucose 105 H D, Calcium 9.0, Magnesium 2.6 H D, Total Bilirubin 1.0, AST 52 H D, ALT 25, Alkaline Phosphatase 99, Total Protein 7.0, Albumin 3.8, Globulin 3.2, Albumin/Globulin Ratio 1.2 I & O for Labs for Last 24 Hours: Intake & Output 08/02/24 08/03/24 08/04/24 08/05/24 23:59 23:59 23:59 23:59 Intake Total 1500 / 1500 529 / 529 2782 / 2782 Output Total 1350 / 1350 0 / 0 0 / 0 Balance 1500 / 850 -821 / -821 2782 / 2782 0 / 0 Weight 90.401 kg 90.401 kg 89.902 kg 91.399 kg The patient's infection will respond to the chosen ABx?: Yes (NO SPECIMAN, POST-OP FROM LAPAROSCOPIC APPENDECTOMY, AFEBRILE OVER 24 HR) Is the patient receiving the right drug, dose, and route?: Yes Could a more targeted ABx be ordered?: No How long ABx needed (days)?: 5
--- NOTE | 2024-08-05 11:58 | PC.NURSE ---
TECH NOTE; NOTIFIED NURSE OF BLOOD PRESSURE FOR 1200 VITAL SIGNS Raimundo FAN, SRNA
--- NOTE | 2024-08-05 14:31 | PC.NURSE ---
Patient able to ambulate hallway 1 lap around
--- NOTE | 2024-08-05 15:20 | PC.NURSE ---
Patient pain managed with prn medications. Patient able to tolerate sips of clear liquids. VS stable and patient remained on room air. Bowl sounds hypoactive and abdomen soft, tender to touch.
--- NOTE | 2024-08-05 16:56 | PC.NURSE ---
TECH NOTE; NOTIFIED NURSE OF BLOOD PRESSURE FOR 1600 VITAL SIGNS Raimundo FAN, SRNA
--- NOTE | 2024-08-05 17:21 | P.PN_ITS ---
Subjective *Date: 08/05/24 *Time: 18:20 Interval history: Small amounts of flatus overnight. Having some burping. Encourage patient to ambulate. Stable on room air. Tolerating ice chips. No vomiting, does have some mild nausea. No bowel movement yet. Afebrile Medical Exam Vital signs and Labs for Last 24 Hours: Vital Signs Temp Pulse Pulse Resp BP Pulse Ox O2 Del Method 08/05/24 17:08 Room Air 08/05/24 16:00 99.0 F 83 18 184/83 H 97 Room Air 08/05/24 14:53 Room Air 08/05/24 13:10 Room Air 08/05/24 11:54 77 08/05/24 11:54 80 08/05/24 11:54 98.7 F 85 16 161/83 H 96 Room Air 08/05/24 11:10 Room Air 08/05/24 09:00 Room Air 08/05/24 08:00 Room Air 08/05/24 08:00 98.2 F 84 16 162/83 H 97 Room Air 08/05/24 06:57 Room Air 08/05/24 05:57 72 08/05/24 05:57 77 08/05/24 05:00 Room Air 08/05/24 04:00 98.6 F 82 16 160/77 H 97 Room Air 08/05/24 03:00 Room Air 08/05/24 01:00 Room Air 08/05/24 00:00 98.0 F 85 16 145/74 H 95 Room Air 08/04/24 23:00 Room Air 08/04/24 21:00 Room Air 08/04/24 20:00 Room Air 08/04/24 20:00 98.9 F 90 16 171/87 H 97 Room Air 08/04/24 18:55 91 H 08/04/24 18:55 94 H 08/04/24 18:33 Room Air Intake and Output 08/05/24 08/05/24 08/05/24 07:59 15:59 23:59 Intake Total 100 / 100 Output Total 0 / 0 Balance 0 / 100 100 / 100 Intake: Intake, Total IV Amount 100 / 100 Piperacillin/Tazo 4.5 gm In 0.9 100 / 100 % Sodium Chloride 100 ml @ 200 mls/hr IV Q6H [facility] Rx#:[id number] Output: Output, Urine Amount 0 / 0 Other: Number of Unmeasured Voids 1 Weight 91.399 kg 91.3 kg Patient Weight 08/05/24 23:59 Weight 91.3 kg Laboratory Results - last 24 hr 08/05/24 05:36: WBC 14.3 H, RBC 3.92 L, Hgb 12.9, Hct 40.2, MCV 102.6 H, MCH 32.9 H, MCHC 32.1, RDW 13.2, Plt Count 197, MPV 11.6 H, Neut % (Auto) 66.0, Lymph % (Auto) 25.2, [place] % (Auto) 6.8, Eos % (Auto) 0.1, Baso % (Auto) 0.6, Neut # (Auto) 9.5 H, Lymph # (Auto) 3.6, [place] # (Auto) 1.0, Eos # (Auto) 0.0, Baso # (Auto) 0.1, Sodium 137, Potassium 3.8, Chloride 108 H, Carbon Dioxide 23, Anion Gap 9.8, BUN 12, Creatinine 0.80, Estimated Creat Clear 109, Estimated GFR 73, Est GFR ( Amer) 89 D, Glucose 105 H D, Calcium 9.0, Magnesium 2.6 H D, Total Bilirubin 1.0, AST 52 H D, ALT 25, Alkaline Phosphatase 99, Total Protein 7.0, Albumin 3.8, Globulin 3.2, Albumin/Globulin Ratio 1.2 I & O for Labs for Last 24 Hours: Intake & Output 08/02/24 08/03/24 08/04/24 08/05/24 23:59 23:59 23:59 23:59 Intake Total 1500 / 1500 529 / 529 2782 / 2782 100 / 100 Output Total 1350 / 1350 0 / 0 0 / 0 Balance 1500 / 850 -821 / -821 2782 / 2782 100 / 100 Weight 90.401 kg 90.401 kg 89.902 kg 91.3 kg Constitutional: Present no acute distress, obese and cooperative Head: Present atraumatic and normocephalic ENT: Present normal exam Respiratory: Present normal respiratory effort; Absent rhonchi, wheezes or crackles Cardiac: Present Reg Rate and Rhythm GI: Present soft, distention, tenderness (Nonfocal, improving) and diminished bowel sounds Extremities: Present normal inspection and full ROM Skin: Present intact; Absent erythema Neuro: Present Grossly Intact, alert, awake, oriented x 3 and moves all extremities Assessment and Plan *Assessment and plan (1) Acute appendicitis: Status: Acute Category: Medical Code(s): K35.80 - Unspecified acute appendicitis (2) Anxiety: Status: Acute Category: Medical Code(s): F41.9 - Anxiety disorder, unspecified (3) Hypertension: Status: Acute Category: Medical Code(s): I10 - Essential (primary) hypertension (4) GERD (gastroesophageal reflux disease): Status: Acute Category: Medical Code(s): K21.9 - Gastro-esophageal reflux disease without esophagitis Plan 58-year-old female who presented with abdominal pain, found to have necrotizing appendicitis. Underwent surgery with removal of ileocecal junction with end-to-end anastomosis. Slow advancement of diet. Continues to require inpatient management. Passing flatus. Cautious initiation of clears today. Anticipate discharge in the coming days. Surgery assisting with care. Problems addressed as follows: Acute necrotizing appendicitis S/P Lap Appy on 08/02. -Advancing diet with clears today. Discontinue IV fluid - Continue Zosyn 4.5 g IV every 6 hours. Continue Zofran 4 mg IV every 6 hours as needed for nausea. Simethicone 160 mg as needed every 6 hours for gas/bloating. - Transition to oral hydrocodone 1-2 tabs of 5 mg / 325 mg every 4 hours as needed. Monitor for toxicity - Jessica with surgery, cautious advancement of diet. - White count improved to 14, hemoglobin 13. Kidney function normal with BUN 12, creatinine 0.8. Repeat CBC, CMP, magnesium ordered for the morning Hypertension: Continue bisoprolol 2.5 mg daily, increase irbesartan to 150 mg daily, will administer extra 75 mg dose this evening. Anxiety: Continue home fluoxetine 40 mg daily GERD: IV famotidine 20 mg twice daily. Full code DVT prophylaxis: Lovenox 40 mg Clear liquid diet
[2024-08-05] MEDS: SODIUM CHLORIDE 0.9% 10ML FLUSH SYRINGE 10 ML IV (20:36)
[2024-08-06] VITALS: BP 154/68; PULSE 83; RESP 16; TEMP 37.1; O2SAT 95
[2024-08-06 00:15] VITALS: PULSE 72; PULSE 76
[2024-08-06] MEDS: SIMETHICONE 80MG CHEWABLE TABLET 160 MG PO ×2 (01:07→09:44)
[2024-08-06 04:00] VITALS: BP 151/81; PULSE 79; RESP 16; TEMP 36.9; O2SAT 96; BMI 30.2
[2024-08-06] MEDS: PIPERACILLIN/TAZO 4.5 GM in 0.9 % SODIUM CHLORIDE 100 ML IV ×2 (04:58→09:43)
[2024-08-06] MEDS: SODIUM CHLORIDE 0.9% 10ML FLUSH SYRINGE 10 ML IV (04:59)
--- NOTE | 2024-08-06 06:06 | PC.NURSE ---
Pt. is alert and orientated x 4. Pt. is on room air. Pt. had an appendectomy partially open, Pt. doing well. Minimal c/o pain . Did not want pain meds this shift. Pt. had 3 LAP sites to abd. one abve the umbilicu, one at the umbilicus and one below the umbilicus. Sites covered with gauze and tegaderm, clean, dry and intact. Pt also has surgical incision to RLQ covered with gauze and tegaderm, dressing is clean, dry and intact. Pt. has been NPO execpt ice chips, Pt. was given permission to sip water and try some jello. Tolerating water well, She said she could not eat the jello. Pt. abd soft, tender, bowel sound hypoactive. while charting this note pt. had a small BM. Pt. up and ambulates independently. Personal items and call zamora in reach.
[2024-08-06] MEDS: IPRATROPIUM/ALBUTEROL 3 ML NEB IH ×2 (06:21→11:02)
[2024-08-06 06:22] VITALS: PULSE 74; PULSE 78
[2024-08-06 06:43] LABS: Basophils # 0.1 K/mm3 (0-0.2); Basophils % 0.6 % (0.1-2.0); Eosinophils # 0.1 Kmm3 (0.0-0.4); Eosinophils % 1.2 % (0.1-12.0); Hematocrit 36.5 % (37.0-47.0); Hemoglobin 12.1 g/dL (12.2-16.2); Immature Granulocytes # 0.19 10^3uL; Immature Granulocytes % 1.6 %; Lymphocytes # 3.1 K/mm3 (0.7-4.5); Lymphocytes % 25.7 % (10-50); Mean Corpuscular HGB Conc 33.2 g/dL (31.8-35.4); Mean Corpuscular Hemoglobin 33.2 pg (27.0-31.2); Mean Corpuscular Volume 100.3 fl (81-99); Mean Platelet Volume 11.6 fl (7.4-10.4); Monocytes # 0.9 K/mm3 (0.1-1.0); Monocytes % 7.6 % (1.7-9.3); Neutrophils # 7.5 K/mm3 (1.8-7.8); Neutrophils % 63.3 % (37.0-80.0); Nucleated Red Blood Cells # 0 10^3/uL; Nucleated Red Blood Cells % 0 %; Platelet Count 212 K/mm3 (142-424); Red Blood Count 3.64 M/mm3 (4.20-5.40); Red Cell Distribution Width 12.8 % (11.5-17.5); Red Cell Distribution Width-SD 47.1 fL; White Blood Count 11.9 K/mm3 (4.8-10.8)
[2024-08-06 07:05] LABS: Alanine Aminotransferase 25 U/L (12-78); Albumin Level 3.6 g/dl (3.5-5.0); Albumin/Globulin Ratio 1.3 (1.1-1.8); Alkaline Phosphatase 98 U/L (38-126); Anion Gap 6.4 mEq/L (5-15); Aspartate Amino Transferase 44 U/L (14-36); Bilirubin,Total 0.7 mg/dl (0.2-1.3); Blood Urea Nitrogen 10 mg/dl (7-17); Calcium 9.2 mg/dl (8.4-10.2); Carbon Dioxide 26 mmol/L (22.0-30.0); Chloride 110 mmol/L (98-107); Creatinine Clearance Estimated 96 mL/min (50-200); Estimated Glomerular Filt Rate 64 ml/min (>60); GFR (African American) 78 ML/MIN (>60); Globulin 2.8 g/dL (1.3-3.2); Glucose 94 mg/dl (74-100); Magnesium 2.4 mg/dl (1.6-2.3); Potassium 3.4 mmoL/L (3.5-5.1); Sodium 139 mmol/L (136-145); Total Protein,Serum 6.4 g/dl (6.3-8.2)
--- NOTE | 2024-08-06 07:16 | EXP.SURG.PN ---
Subjective Patient reports: feels better, flatus and bowel movement Exam Data for Last 24 hours Vital signs and Labs for Last 24 Hours: Temp Pulse Resp BP Pulse Ox O2 Del Method 98.5 F 74 16 151/81 H 96 Room Air 08/06/24 04:00 08/06/24 06:22 08/06/24 04:00 08/06/24 04:00 08/06/24 04:00 08/06/24 06:56 Laboratory Results - last 24 hr 08/06/24 05:34: WBC 11.9 H, RBC 3.64 L, Hgb 12.1 L, Hct 36.5 L, MCV 100.3 H, MCH 33.2 H, MCHC 33.2, RDW 12.8, Plt Count 212, MPV 11.6 H, Neut % (Auto) 63.3, Lymph % (Auto) 25.7, [place] % (Auto) 7.6, Eos % (Auto) 1.2, Baso % (Auto) 0.6, Neut # (Auto) 7.5, Lymph # (Auto) 3.1, [place] # (Auto) 0.9, Eos # (Auto) 0.1, Baso # (Auto) 0.1, Sodium 139, Potassium 3.4 L, Chloride 110 H, Carbon Dioxide 26, Anion Gap 6.4, BUN 10, Creatinine 0.90, Estimated Creat Clear 96, Estimated GFR 64, Est GFR ( Amer) 78, Glucose 94, Calcium 9.2, Magnesium 2.4 H, Total Bilirubin 0.7, AST 44 H, ALT 25, Alkaline Phosphatase 98, Total Protein 6.4, Albumin 3.6, Globulin 2.8, Albumin/Globulin Ratio 1.3 I & O for Last 24 hours: Intake & Output 08/03/24 08/04/24 08/05/24 08/06/24 11:59 11:59 11:59 11:59 Intake Total 1500 / 1500 1600 / 1600 171 / 171 560 / 560 Output Total 1350 / 1350 0 / 0 0 / 0 0 / 0 Balance 150 / 150 1600 / 1600 1710 / 1710 560 / 560 Weight 199 lb 4.8 oz 198 lb 3.2 oz 201 lb 4.513 oz 199 lb 6 oz Constitutional Constitutional: no acute distress *Routine Respiratory Exam Respiratory: Absent respiratory distress *Routine Cardiovascular Exam Cardiovascular: Absent tachycardia *Routine Abdominal Exam Abdominal: Present soft Comments: Incisions healing without evidence of infection Progress Note: A&P Assessment and plan (1) Acute appendicitis: Status: Acute Assessment and plan: Overall, doing well postoperative day 4 status post ileocecectomy for necrotizing appendicitis. Continue to increase ambulation Advance diet Likely discharge home soon with close outpatient follow-up
[2024-08-06 07:41] VITALS: BP 154/81; PULSE 86; RESP 17; TEMP 36.8; O2SAT 95
[2024-08-06] MEDS: FLUOXETINE 20MG CAPSULE 40 MG PO (09:44)
[2024-08-06] MEDS: ENOXAPARIN 40MG/0.4ML SYRINGE 40 MG SUBCUT (09:44)
[2024-08-06] MEDS: BISOPROLOL 5MG TABLET 2.5 MG PO (09:45)
--- NOTE | 2024-08-06 10:11 | EXP.DC.SUM ---
General Admission date:: 08/02/24 Discharge date: 08/06/24 HPI HPI HPI: 58-year-old female patient who is admitted to the hospital with acute appendicitis following 24 hours of worsening abdominal pain/cramping associated with nausea and vomiting. She reports a similar episode that occurred 1 week ago and resolved without intervention, however today the pain became increasingly worse prompting her to come to the ER. She is seen at bedside post-op with a lap appy. She denies any pain at this time, she is having some nausea. Hospital Course Hospital Course Hospital Course: 58-year-old female who presented with abdominal pain, found to have necrotizing appendicitis. Underwent surgery with removal of ileocecal junction with end-to-end anastomosis. Slow advancement of diet. Continues to require inpatient management. Passing flatus. Cautious initiation of clears today. Anticipate discharge in the coming days. Surgery assisting with care. Problems addressed as follows: Acute necrotizing appendicitis S/P Lap Appy on 08/02. -Advancing diet with clears today. Discontinue IV fluid - Continue Zosyn 4.5 g IV every 6 hours. Continue Zofran 4 mg IV every 6 hours as needed for nausea. Simethicone 160 mg as needed every 6 hours for gas/bloating. - Transition to oral hydrocodone 1-2 tabs of 5 mg / 325 mg every 4 hours as needed. Monitor for toxicity - Jessica with surgery, cautious advancement of diet. - White count improved to 14, hemoglobin 13. Kidney function normal with BUN 12, creatinine 0.8. Repeat CBC, CMP, magnesium ordered for the morning Hypertension: Continue bisoprolol 2.5 mg daily, increase irbesartan to 150 mg daily, will administer extra 75 mg dose this evening. Anxiety: Continue home fluoxetine 40 mg daily GERD: IV famotidine 20 mg twice daily. Exam Data for Last 24 hours Vital signs and Labs for Last 24 Hours: Temp Pulse Resp BP Pulse Ox O2 Del Method 98.3 F 86 17 154/81 H 95 Room Air 08/06/24 07:41 08/06/24 07:41 08/06/24 07:41 08/06/24 07:41 08/06/24 07:41 08/06/24 07:41 Laboratory Results - last 24 hr 08/06/24 05:34: WBC 11.9 H, RBC 3.64 L, Hgb 12.1 L, Hct 36.5 L, MCV 100.3 H, MCH 33.2 H, MCHC 33.2, RDW 12.8, Plt Count 212, MPV 11.6 H, Neut % (Auto) 63.3, Lymph % (Auto) 25.7, [place] % (Auto) 7.6, Eos % (Auto) 1.2, Baso % (Auto) 0.6, Neut # (Auto) 7.5, Lymph # (Auto) 3.1, [place] # (Auto) 0.9, Eos # (Auto) 0.1, Baso # (Auto) 0.1, Sodium 139, Potassium 3.4 L, Chloride 110 H, Carbon Dioxide 26, Anion Gap 6.4, BUN 10, Creatinine 0.90, Estimated Creat Clear 96, Estimated GFR 64, Est GFR ( Amer) 78, Glucose 94, Calcium 9.2, Magnesium 2.4 H, Total Bilirubin 0.7, AST 44 H, ALT 25, Alkaline Phosphatase 98, Total Protein 6.4, Albumin 3.6, Globulin 2.8, Albumin/Globulin Ratio 1.3 I & O for Last 24 hours: Intake & Output 08/03/24 08/04/24 08/05/24 08/06/24 23:59 23:59 23:59 23:59 Intake Total 529 / 529 2782 / 2782 460 / 560 100 / 100 Output Total 1350 / 1350 0 / 0 0 / 0 0 / 0 Balance -821 / -821 2782 / 2782 460 / 560 100 / 100 Weight 90.401 kg 89.902 kg 91.3 kg 90.435 kg Results Data Completed and Pending Labs on day of discharge: Labs from last 24 hours 08/06/24 05:34 WBC 11.9 H RBC 3.64 L Hgb 12.1 L Hct 36.5 L MCV 100.3 H MCH 33.2 H MCHC 33.2 RDW 12.8 Plt Count 212 MPV 11.6 H Neut % (Auto) 63.3 Lymph % (Auto) 25.7 [place] % (Auto) 7.6 Eos % (Auto) 1.2 Baso % (Auto) 0.6 Neut # (Auto) 7.5 Lymph # (Auto) 3.1 [place] # (Auto) 0.9 Eos # (Auto) 0.1 Baso # (Auto) 0.1 Sodium 139 Potassium 3.4 L Chloride 110 H Carbon Dioxide 26 Anion Gap 6.4 BUN 10 Creatinine 0.90 Estimated Creat Clear 96 Estimated GFR 64 Est GFR ( Amer) 78 Glucose 94 Calcium 9.2 Magnesium 2.4 H Total Bilirubin 0.7 AST 44 H ALT 25 Alkaline Phosphatase 98 Total Protein 6.4 Albumin 3.6 Globulin 2.8 Albumin/Globulin Ratio 1.3 DS: Diagnosis Discharge Diagnosis (1) Acute appendicitis: Status: Acute Code(s): K35.80 - Unspecified acute appendicitis (2) GERD (gastroesophageal reflux disease): Status: Acute Code(s): K21.9 - Gastro-esophageal reflux disease without esophagitis (3) Anxiety: Status: Acute Code(s): F41.9 - Anxiety disorder, unspecified (4) Hypertension: Status: Acute Code(s): I10 - Essential (primary) hypertension Meds Home Medications and Allergies Home Medications ?Medication ?Instructions ?Recorded ?Confirmed ?Type fluoxetine 40 mg capsule (Prozac) 40 mg PO DAILY Anxiety 11/13/17 08/02/24 History bisoprolol 2.5 1 tab PO DAILY htn 12/28/22 08/02/24 History mg-hydrochlorothiazide 6.25 mg tablet losartan 50 mg tablet 50 mg PO DAILY 08/03/24 08/03/24 History amoxicillin 875 mg-potassium 1 tab PO BID #10 tabs 08/06/24 Rx clavulanate 125 mg tablet famotidine 40 mg tablet 40 mg PO HS PRN heartburn #30 tabs 08/06/24 Rx hydrocodone 5 mg-acetaminophen 325 1 tab PO Q6HP PRN Moderate Pain 08/06/24 Rx mg tablet (4-6) 3 days #11 tabs New Prescriptions to Start Prescriptions: amoxicillin-pot clavulanate Stan Worthy famotidine Stan Worthy hydrocodone-acetaminophen Stan Worthy Allergies Allergy/AdvReac Type Severity Reaction Status Date / Time No Known Allergies Allergy Verified 01/11/23 11:32 Discharge Plan Disposition Patient Disposition: Home, Self-Care Condition: Fair Discharge Order Discharge Orders: Discharge Order (Routine); Ordered 08/06/24 Ordered By: Stan Worthy Follow up Plan Follow up with: Zeyad Oliveira MD [Staff Physician] - 1 week Radha,Hannah [Primary Care Provider] - See instructions Prescriptions/Medication Reconciliation: New hydrocodone-acetaminophen 5-325 mg Tablet 1 tab PO Q6HP PRN (Reason: Moderate Pain (4-6)) 3 Days Qty: 11 0RF amoxicillin-pot clavulanate 875-125 mg tablet 1 tab PO BID Qty: 10 0RF famotidine 40 mg tablet 40 mg PO HS PRN (Reason: heartburn) Qty: 30 0RF Continued fluoxetine [Prozac] 40 mg capsule 40 mg PO DAILY bisoprolol-hydrochlorothiazide 2.5-6.25 mg Tablet 1 tab PO DAILY losartan 50 mg tablet 50 mg PO DAILY Patient Comments: TAKE 1 TABLET BY MOUTH ONCE DAILY. APPOINTMENT REQUIRED FOR FUTURE REFILLS Problem Reconciliation Problems Reviewed?: Yes Patient Discharge Instructions ACTIVITY: Continue current activity, Ambulate as tolerated and No heavy lifting DIET: continue same diet and advance to your usual diet Patient Instructions: Appendicitis, DI for Surgical Site Infection, Appendectomy -- Laparoscopic Surgery, Catheter-Associated Urinary Tract Infection, Stop Light Infection Print Language: F[place]ian Providers Primary Care Provider: Hannah Garcia Admit Provider: Kemal Morin Attending Provider: Kemal Morin
[2024-08-06] MEDS: IRBESARTAN 150MG TAB 150 MG PO (10:16)
[2024-08-06] MEDS: SODIUM CHLORIDE 0.9% 10ML VIAL 8 ML IV (10:17)
[2024-08-06] MEDS: FAMOTIDINE 20MG/2ML VIAL 20 MG IV (10:17)
[2024-08-06 11:59] VITALS: BP 156/75; PULSE 81; RESP 17; TEMP 36.8; O2SAT 97
== END 2024-08-06 13:09 | disposition home or self-care (01) | DRG 331 ==
LOC: ER 15:02 → SDC 17:55 → 2ND 18:49
PROVIDERS: Nurse Practitioner; Surgery; Admitting Provider Student in an Organized Health Care Education/Training Program; Emergency Provider Emergency Medicine; PCP Family Medicine; Visit Provider Student in an Organized Health Care Education/Training Program
PROC: 0DTJ4ZZ Resection of Appendix, Percutaneous Endoscopic Approach (ICD-10-PCS; CPT 44970; principal; 2024-08-02 18:00)
DX: K35.32 Acute appendicitis with perforation, localized peritonitis, and gangrene, without abscess (principal); I10 Essential (primary) hypertension; K21.9 Gastro-esophageal reflux disease without esophagitis; F17.210 Nicotine dependence, cigarettes, uncomplicated; Z79.899 Other long term (current) drug therapy; Z79.84 Long term (current) use of oral hypoglycemic drugs; F41.9 Anxiety disorder, unspecified; Z53.31 Laparoscopic surgical procedure converted to open procedure
CPT/HCPCS: 36415; 74177; 80053; 81001; 83605; 83690; 83735; 84484; 85025; 85651; 86140; 86803; 87389; 93005; 94640; 96374; 99285; J3490; J1100; J1171; J1200; J1650; J2250; J2270; J2405; J2543; J2550; J3010; J7030; J7120; J7620; Q9967